=== PATIENT | male | born 1965 | race Caucasian/White ===

== ENCOUNTER 2016-05-31 15:55 | Inpatient (IN) | payer MEDICAID ==
--- NOTE | 2016-05-31 17:24 | ED PDOC ---
Arrival/HPI - General Time Seen by Provider: 05/31/16 16:50 Historian: Spouse, Other (Friend) - History of Present Illness Narrative History of Present Illness (Text): 05/31/16 17:08 A 51 year old male, whose past medical history includes diabetes, liver cancer currently getting chemo at [facility], hepatitis c, port-a-cath, portal vein thrombosis, and esophageal varices, is brought into the emergency department by and friend complaining of altered mental status. Friend reports patient has become more confused over the past few days. Patient was seen yesterday at [facility] for same complaint. He had a brain MRI which showed no abnormal findings, labs revealed a high level of ammonia. Patient was discharged home with lactulose. Friend reports medication did not help and patient became more confused today. denies any fever, vomiting, diarrhea, abdominal pain, chest pain, shortness of breath or any other complaints. ROS limited due to patients state. 06/01/16 10:29 Time/Duration: Other (few days) Symptom Course: Worsening Quality: Other Context: Other Past Medical History - Provider Review Nursing Documentation Reviewed: Yes - Infectious Disease Hx of Infectious Diseases: None - Cardiac Hx Cardiac Disorders: Yes Hx Hypertension: Yes - Pulmonary Other/Comment: portal vein thrombosis - Endocrine/Metabolic Hx Diabetes Mellitus Type 2: Yes - Hematological/Oncological Hx Hepatitis C: Yes Other/Comment: portal vein thrombosis - Musculoskeletal/Rheumatological Hx Falls: No - Gastrointestinal Other/Comment: Esophageal varices - Psychiatric Hx Substance Use: No - Surgical History Other/Comment: Banding due to esophageal varices - Anesthesia Hx Anesthesia: Yes Hx Anesthesia Reactions: No Family/Social History - Physician Review Nursing Documentation Reviewed: Yes Family/Social History: No Known Family HX Smoking Status: Smoker Currrent Status Unknown Hx Alcohol Use: No Hx Substance Use: No Allergies/Home Meds Allergies/Adverse Reactions: Allergies aspirin Allergy (Mild, Verified 05/31/16 17:39) VOMITING Home Medications: Home Meds Medication Instructions Recorded Confirmed Furosemide [Lasix] 20 mg PO DAILY 05/31/16 05/31/16 Lisinopril [Zestril] 2.5 mg PO DAILY 05/31/16 05/31/16 Omeprazole [Omeprazole] 40 mg DAILY 05/31/16 05/31/16 Ondansetron [Zofran] 8 mg PO DAILY 05/31/16 05/31/16 SITagliptin [Januvia] 100 mg PO DAILY 05/31/16 05/31/16 rifAXIMin [Xifaxan] 550 mg PO DAILY 05/31/16 05/31/16 Motilium 10 mg PO DAILY 06/01/16 Mv-Mn/FA/Vit K/Lycop/Lut/Coq10 06/01/16 [Daily Multivitamin Capsule] Propranolol [Inderal] 10 mg PO HS 06/01/16 06/01/16 Propranolol [Inderal] 20 mg PO DAILY 06/01/16 06/01/16 Vit B1 Mn/B2/B3/B5/B6/B12/C/FA [B 06/01/16 Complex with Vitamin C Tab] oxyCODONE [oxyCODONE Immediate 10 mg PO TID PRN 06/01/16 06/01/16 Release Tab] Review of Systems - Review of Systems Systems not reviewed;Unavailable: Altered Mental Status Physical Exam Vital Signs Reviewed: Yes Vital Signs Temp Pulse Resp BP Pulse Ox 06/01/16 09:05 72 18 117/83 100 06/01/16 08:53 74 18 124/78 100 06/01/16 07:38 97.8 F 83 15 106/70 96 06/01/16 06:00 98.9 F 76 16 146/72 96 06/01/16 01:52 87 18 112/75 100 05/31/16 18:55 84 19 123/79 99 05/31/16 17:21 98.5 F 83 17 123/81 100 Temperature: Afebrile Blood Pressure: Normal Pulse: Regular Respiratory Rate: Normal Appearance: Positive for: Well-Appearing, Non-Toxic, Comfortable Mental Status: Positive for: Confused. No: Alert and Oriented X 3 (Alert and oriented times 1), Agitated, Lethargic - Systems Exam Head: Present: Atraumatic, Normocephalic Pupils: Present: PERRL Extroacular Muscles: Present: EOMI Conjunctiva: Present: Normal Mouth: Present: Moist Mucous Membranes Neck: Present: Normal Range of Motion Respiratory/Chest: Present: Clear to Auscultation, Good Air Exchange. No: Respiratory Distress, Accessory Muscle Use Cardiovascular: Present: Regular Rate and Rhythm, Normal S1, S2. No: Murmurs Abdomen: Present: Normal Bowel Sounds. No: Tenderness, Distention, Peritoneal Signs Back: Present: Normal Inspection Upper Extremity: Present: Normal Inspection. No: Cyanosis, Edema Lower Extremity: Present: Normal Inspection. No: Edema Neurological: Present: GCS=15, CN II-XII Intact, Speech Normal Skin: Present: Warm, Dry, Normal Color. No: Rashes Psychiatric: Present: Alert. No: Oriented x 3 (Oriented x 1), Agitated, Lethargic Medical Decision Making ED Course and Treatment: 05/31/16 17:08 Impression: A 51 year old male brought in for altered mental status Differential Diagnosis included but are not limited to: AMS rule out infection Plan: -- Chest xray -- EKG -- Labs -- Blood and Urine culture -- Urinalysis -- Reassess and disposition Progress Notes: Blood work from [facility] reviewed, showed fairly normal results. If lab results are abnormal today patient will be admitted. Plan discussed extensively with both and friend of patient, who express understanding. 05/31/16 17:43 Case discussed with nurse from [facility], who reports patients last treatment was on 05/17/16. She states patient was seen on 05/29/16 and his ammonia level was 178. Patient was given lactulose and had 4 bowel movements yesterday. She states patients glucose level was running high, he had a finger stick level of 298. Brain MRI was negative. 05/31/16 20:08 ammonia 219-lactulose ordered. pt to be admitted under medical service. dr hanson paged. 05/31/16 21:43 Dr. Hanson not taking admissions. Case discussed with Dr. Cates, who accepts patient under his service. 06/01/16 10:29 06/01/16 10:30 - Lab Interpretations Lab Results: 05/31/16 17:50 05/31/16 17:50 Lab Results 05/31/16 18:47: Ammonia 219 H* 05/31/16 17:50: WBC 3.4 L D, RBC 4.36, Hgb 13.7 L, Hct 38.9 L, MCV 89.2, MCH 31.4, MCHC 35.2, RDW 15.1 H, Plt Count 125, MPV 11.1 H, Gran % 55.5, Lymph % ( Auto) 22.8, [place] % (Auto) 19.3 H, Eos % (Auto) 1.8, Baso % (Auto) 0.6, Gran # 1.87, Lymph # 0.8 L, Piute # 0.7 H, Eos # 0.1, Baso # 0.02, Sodium 135, Potassium 4.8, Chloride 104, Carbon Dioxide 22, Anion Gap 14, BUN 8, Creatinine 0.7, Est GFR ( Amer) > 60, Est GFR (Non-Af Amer) > 60, Random Glucose 232 H, Calcium 9.3, Total Bilirubin 2.2 H, AST 64 H, ALT 27, Alkaline Phosphatase 139 H, Total Protein 8.5 H, Albumin 3.7, Globulin 4.7, Albumin/ Globulin Ratio 0.8 L I have reviewed the lab results: Yes - RAD Interpretation Radiology Orders: 05/31/16 17:45 CHEST PORTABLE [RAD] Stat - Medication Orders Current Medication Orders: Furosemide (Lasix) 20 mg PO DAILY [facility] Insulin Human Lispro (Humalog Low) 0 units SC ACHS MELY PRN Reason: Protocol Last Admin: 06/01/16 08:31 Dose: 1 UNITS MAR Blood Glucose Document 06/01/16 08:31 MAIA (Rec: 06/01/16 08:32 MAIA [facility] [id number]) Blood Glucose Finger Stick Blood Glucose (70-120) 173 Subcutaneous Administrations Document 06/01/16 08:31 MAIA (Rec: 06/01/16 08:32 MAIA [facility] [id number]) Injection Site MAR Injection Site Left Arm Charges for Administration # of Subcutaneous Administrations 1 Lactulose (Enulose) 30 gm PO QID [facility] Lisinopril (Zestril) 2.5 mg PO DAILY [facility] Multivitamins/Minerals (Therapeutic-M Tab) 1 tab PO DAILY [facility] Non-Formulary Medication (Motilium) 10 mg PO DAILY [facility] Non-Formulary Medication (Vit B1 Mn/B2/B3/B5/B6/B12/C/Fa [B Complex With Vitamin C Tab]) 1 tab PO DAILY [facility] Ondansetron HCl (Zofran Tab) 8 mg PO DAILY [facility] Oxycodone HCl (Oxycodone Immediate Release Tab) 10 mg PO TID PRN PRN Reason: Pain, moderate (4-7) Pantoprazole Sodium (Protonix Inj) 40 mg IVP DAILY [facility] Propranolol HCl (Inderal) 20 mg PO DAILY MELY Propranolol HCl (Inderal) 10 mg PO HS MELY Rifaximin (Xifaxan) 550 mg PO BID MELY PRN Reason: Protocol Discontinued Medications Home Med (*Refrigerator Open) Confirm Administered Dose 1 unit XX .STK-MED ONE Stop: 06/01/16 06:01 Lactulose (Enulose) 20 gm PO ONCE STA Stop: 05/31/16 20:16 Last Admin: 05/31/16 20:33 Dose: 20 GM Lactulose (Generlac) 200 gm TN ONCE ONE Stop: 06/01/16 00:01 Last Admin: 06/01/16 02:42 Dose: 200 GM Lactulose (Enulose) 20 gm PO Q6 MELY Last Admin: 06/01/16 07:31 Dose: Lorazepam (Ativan) 1 mg IVP ONCE ONE PRN Reason: Protocol Stop: 05/31/16 18:56 Last Admin: 05/31/16 18:59 Dose: 1 MG Behavioural Document 05/31/16 18:59 SE (Rec: 05/31/16 18:59 SE [id number]) Maintenance Maintenance Dose No Nonmedicinal Nonmedicinal Interventions Activity Behavior Behavior for Medication: Anxiety Pulling IV lines/tubes/ catheter IVP Administration Document 05/31/16 18:59 SE (Rec: 05/31/16 18:59 SE [id number]) Charges for Administration # of IVP Administrations 1 Rifaximin (Xifaxan) 550 mg PO DAILY MELY PRN Reason: Protocol - Scribe Statement The provider has reviewed the documentation as recorded by the Theoibrickey Mcbride Provider Scribe Attestation: All medical record entries made by the Scribe were at my direction and personally dictated by me. I have reviewed the chart and agree that the record accurately reflects my personal performance of the history, physical exam, medical decision making, and the department course for this patient. I have also personally directed, reviewed, and agree with the discharge instructions and disposition. Disposition/Present on Arrival - Present on Arrival Any Indicators Present on Arrival: No History of DVT/PE: No History of Uncontrolled Diabetes: No Urinary Catheter: No History Surgical Site Infection Following: None - Disposition Have Diagnosis and Disposition been Completed?: Yes Diagnosis: Hepatic encephalopathy Disposition Time: 20:43 Patient Plan: Admission Condition: STABLE
[2016-05-31 17:38] VITALS: BMI 29.9
[2016-05-31 17:57] LABS: ADD MANUAL DIFF? NO
[2016-05-31 18:04] LABS: BASO # 0.02 [, K/mm3] (0.0-2.0); BASO % 0.6 % (0.0-3.0); EOS # 0.1 (0.0-0.7); EOS % 1.8 % (1.5-5.0); GRAN # 1.87 (1.4-6.5); GRAN % 55.5 % (50.0-68.0); HEMATOCRIT 38.9 % (42.0-52.0); LYMPH # 0.8 (1.2-3.4); LYMPH % 22.8 % (22.0-35.0); MEAN CELL VOLUME 89.2 fL (80.0-105.0); MEAN CORPUSCULAR HEMOGLOBIN 31.4 pg (25.0-35.0); MEAN CORPUSCULAR HGB CONC 35.2 g/dl (31.0-37.0); MEAN PLATELET VOLUME 11.1 fl (7.0-11.0); MONO # 0.7 (0.1-0.6); MONO % 19.3 % (1.0-6.0); PLATELET COUNT 125 [, 10^3/uL] (120.0-450.0); RED CELL DISTRIBUTION WIDTH 15.1 % (11.5-14.5); WHITE BLOOD COUNT 3.4 [, 10^3/ul] (4.5-11.0)
[2016-05-31 18:09] LABS: ALB/GLOB RATIO 0.8 (1.1-1.8); ALKALINE PHOSPHATASE 139 U/L (38-133); ALT/SGPT 27 U/L (7-56); AST/SGOT 64 U/L (15-59); BILIRUBIN,TOTAL 2.2 mg/dL (0.2-1.3); BLOOD UREA NITROGEN 8 mg/dL (7-21); CALCIUM 9.3 mg/dL (8.4-10.5); CARBON DIOXIDE 22 mmol/L (21-33); CHLORIDE 104 mmol/L (98-107); GFR AFRICAN-AMERICAN > 60; GLUCOSE,RANDOM 232 mg/dL (70-110); SODIUM 135 mmol/L (132-148); TOTAL PROTEIN 8.5 g/dL (5.8-8.3)
[2016-05-31 18:30] LABS: POTASSIUM 4.8 mmol/L (3.6-5.0)
--- NOTE | 2016-05-31 19:28 | CARD ---
APPROVED REPORT EKG Measurement Heart [id number] DC [id number] <Conclusion> Normal sinus rhythm Prolonged QT Abnormal ECG
--- NOTE | 2016-05-31 22:19 | CP.PCM.HP ---
<RoyaNiki - Last Filed: 06/01/16 00:33> History of Present Illness - History of Present Illness History of Present Illness: PGY-[address] Cates A 51 year old male, whose past medical history includes diabetes, liver cancer, hepatitis c, port-a-cath, portal vein thrombosis, and esophageal varices, is brought into the emergency department by and friend complaining of altered mental status. Friend reports patient has become more confused over the past few days. Patient was seen yesterday at [facility] for same complaint. He had a brain MRI which showed no abnormal findings, labs revealed a high level of ammonia. He was prescribed both xifaxin and lactulose but insurance only approved lactulose. Pt only took lactulose once. Today, he has drastic decline in mental status, more confused, cannot recognize people/ place/time, decrease PO intake. In the ED, VSS. Pt is leukopenic at 3.4. Hb low at 13.7. RDW is high at 15. Ammonia at 219. Glucose is high at 232. total bili is 2.2. AST high at 6. Alk phos 139. A:G is low at 0.8 EKG showed NSR @ 83. prolong QT at 481 Pt has given pt lactulose 20 x 1. and ativan 1 x 1. ROS - denies any fever, vomiting, diarrhea, abdominal pain, chest pain, shortness of breath or any other complaints. ROS limited due to patients state. Denies recent sickness, trauma, travel PMH Diabetes 2 Liver cancer, diagnosed 2 years ago, s/p radiation then Nexavar. Now on chemo trial at [facility]. Got 1 dose last week so far - weekly IV for anemia and platelet hepatitis c portal vein thrombosis esophageal varices s/p banding Hx upper GI beeding and his last episode was on october 10 2014 and he was told never to take any anticoagulants and antiplatelets PSH Port-a-cath Appendectomy FH Htn in multiple family members SH Denies the use of tobacco/etoh/illicit drug substances All NKDA (ASA listed as an allergy, but patient is not allergic; he reports being told to stay away from anticoagulation due to his varices and history of bleeding in the past) Med Lisinopril 2.5; Laxis 20 xifaxan 550, januvia Propranolol 20mg po AM, 10 mg at night omeprazole 40 Motilium 10mg Vit B, multivit Oxycodone for pain at cancer site Note: This med list is updated. Pt is currently off Aldactone 50 PMD = Dr. Yana Christine Oncologist = Dr. Kwadwo MosleyMiguel Angel, ([phone]) Present on Admission - Present on Admission Any Indicators Present on Admission: No Past Patient History - Infectious Disease Hx of Infectious Diseases: None - Past Social History Smoking Status: Smoker Currrent Status Unknown - CARDIAC Hx Cardiac Disorders: Yes Hx Hypertension: Yes - PULMONARY Other/Comment: portal vein thrombosis - ENDOCRINE/METABOLIC Hx Diabetes Mellitus Type 2: Yes - HEMATOLOGICAL/ONCOLOGICAL Hx Hepatitis C: Yes Other/Comment: portal vein thrombosis - MUSCULOSKELETAL/RHEUMATOLOGICAL Hx Falls: No - GASTROINTESTINAL Other/Comment: Esophageal varices - PSYCHIATRIC Hx Substance Use: No - SURGICAL HISTORY Other/Comment: Banding due to esophageal varices - ANESTHESIA Hx Anesthesia: Yes Hx Anesthesia Reactions: No Meds Allergies/Adverse Reactions: Allergies Allergy/AdvReac Type Severity Reaction Status Date / Time aspirin Allergy Mild VOMITING Verified 05/31/16 17:39 Physical Exam - Constitutional Appears: No Acute Distress Additional comments: lethargic, easily awaken, AAOx1 - Head Exam Head Exam: ATRAUMATIC, NORMOCEPHALIC - Eye Exam Eye Exam: Normal appearance, PERRL. absent: Scleral icterus - ENT Exam ENT Exam: Mucous Membranes Moist - Neck Exam Neck exam: Positive for: Normal Inspection. Negative for: Lymphadenopathy, Meningismus - Respiratory Exam Respiratory Exam: Clear to Auscultation Bilateral, NORMAL BREATHING PATTERN. absent: Rales, Rhonchi, Wheezes - Cardiovascular Exam Cardiovascular Exam: REGULAR RHYTHM, +S1, +S2. absent: Systolic Murmur - GI/Abdominal Exam GI & Abdominal Exam: Normal Bowel Sounds, Organomegaly, Soft. absent: Distended , Firm, Guarding, Rigid Additional comments: no fluid wave - Extremities Exam Extremities exam: Positive for: normal capillary refill, pedal pulses present. Negative for: pedal edema - Neurological Exam Additional comments: lethargic - Skin Skin Exam: Dry, Warm Results - Vital Signs Recent Vital Signs: Last Vital Signs Temp 98.5 F 05/31/16 17:21 Pulse 84 05/31/16 18:55 Resp 19 05/31/16 18:55 BP 123/79 05/31/16 18:55 Pulse Ox 99 05/31/16 18:55 - Labs Result Diagrams: 05/31/16 17:50 05/31/16 17:50 Labs: Laboratory Results - last 24 hr 05/31/16 05/31/16 17:50 18:47 WBC 3.4 L D RBC 4.36 Hgb 13.7 L Hct 38.9 L MCV 89.2 MCH 31.4 MCHC 35.2 RDW 15.1 H Plt Count 125 MPV 11.1 H Gran % 55.5 Lymph % (Auto) 22.8 Mclean % (Auto) 19.3 H Eos % (Auto) 1.8 Baso % (Auto) 0.6 Gran # 1.87 Lymph # 0.8 L Mclean # 0.7 H Eos # 0.1 Baso # 0.02 Sodium 135 Potassium 4.8 Chloride 104 Carbon Dioxide 22 Anion Gap 14 BUN 8 Creatinine 0.7 Est GFR ( Amer) > 60 Est GFR (Non-Af Amer) > 60 Random Glucose 232 H Calcium 9.3 Total Bilirubin 2.2 H AST 64 H ALT 27 Alkaline Phosphatase 139 H Ammonia 219 H* Total Protein 8.5 H Albumin 3.7 Globulin 4.7 Albumin/Globulin Ratio 0.8 L Assessment & Plan - Assessment and Plan (Free Text) Plan: A 51 year old male, whose past medical history includes diabetes, liver cancer, hepatitis c, port-a-cath, portal vein thrombosis, and esophageal varices, is brought into the emergency department by and friend complaining of altered mental status likely from hepatic encephalopathy due to chronic liver cancer, hep c, portal hypotension, portal vein thrombosis AMS likely from hepatic encephalopathy - ischemic unlikely Consider CT head in AM. No CP. EKG no ST changes or TWI - infection Leukocytosis 3.4. Septic work up. Observe off broad spectrum antibiotics - iatrogenic/Electrolyes Sugar normal. other electrolytes wnl - Ammounia high s/p lacutose x 2; - liquid diet for now pending mentation improves Hepatic encephalopathy - consider CT Abdomen and pelvis when pt mentation improves - Xifaxin, lactulose q6 - pending GI rec - aspiration precaution Liver cancer hepatitis c Portal hypotension portal vein thrombosis due to cancer esophageal varices s/p banding - pending INR, coags - total bili is 2.2. AST high at 6. Alk phos 139. A:G is low at 0.8 - continue home motilium for GI motility Hb low at 13.7. RDW is high at 15. - hemodynamically stable DM - stable; will place on accuchecks and ISS Esophageal varices - c/w propranolol; no acute issues at this time prolong QT at 481 GI/DVT ppx - will place on protonix 40mg po daily; pending coags, scd for now - Date & Time Date: 05/31/16 Time: 22:16 <Hiwot Cates - Last Filed: 06/01/16 06:25> Results - Vital Signs Recent Vital Signs: Last Vital Signs Temp 98.5 F 05/31/16 17:21 Pulse 87 06/01/16 01:52 Resp 18 06/01/16 01:52 BP 112/75 06/01/16 01:52 Pulse Ox 100 06/01/16 01:52 - Labs Result Diagrams: 05/31/16 17:50 05/31/16 17:50 Labs: Laboratory Results - last 24 hr 06/01/16 02:50 PT 18.0 H INR 1.67 H APTT 29.2 Attending/Attestation - Attestation I have personally seen and examined this patient.: Yes I have fully participated in the care of the patient.: Yes I have reviewed all pertinent clinical information: Yes Notes (Text): 06/01/16 06:23 Patient was seen when he was in room # [address] in the ER with Dr.Katherine Pryor. Agree with history , physical examination , assessment and plan.
--- NOTE | 2016-05-31 22:49 | RAD ---
EXAM: XR Chest, 1 View. CLINICAL HISTORY: 51 years old, male; Signs and symptoms; Other: Weakness; Additional info: Confusion TECHNIQUE: Frontal view of the chest. EXAM DATE/TIME: 05/31/2016 5:45 PM COMPARISON: CR - CHEST TWO VIEWS (PA/LAT) 01/29/2015 11:18:21 AM FINDINGS: Tubes and catheters: Port-A-Cath in the right chest wall. Catheter tip is in the low superior vena cava. Heart: Heart size is normal. Mediastinum and kayli: Mediastinal and hilar contours are unremarkable. Vascularity: Pulmonary vascularity is normal. Lungs: Lung volumes are low. There are no focal consolidations. Pleural spaces: There are no effusions. Bony structures: Bony structures are unremarkable. IMPRESSION: No acute disease in the chest
[2016-06-01] MEDS ORDERED: Lactulose 10 gm/15 ml (Rectal Use) PR ONE
[2016-06-01] MEDS ORDERED: oxyCODONE 10 mg Immediate Release Tab PO PRN (00:17)
[2016-06-01 03:15] LABS: INR 1.67 (0.93-1.08); PARTIAL THROMBOPLASTIN TIME 29.2 Seconds (23.7-30.8)
[2016-06-01 06:27] LABS: HEMATOCRIT 37.1 % (42.0-52.0); MEAN CELL VOLUME 88.8 fL (80.0-105.0); MEAN CORPUSCULAR HEMOGLOBIN 31.8 pg (25.0-35.0); MEAN CORPUSCULAR HGB CONC 35.8 g/dl (31.0-37.0); PLATELET COUNT 112 [, 10^3/uL] (120.0-450.0); RED CELL DISTRIBUTION WIDTH 15.1 % (11.5-14.5)
[2016-06-01 06:39] LABS: ADD MANUAL DIFF? YES; WHITE BLOOD COUNT 2.8 [, 10^3/ul] (4.5-11.0)
[2016-06-01 06:40] LABS: ALB/GLOB RATIO 0.7 (1.1-1.8); ALKALINE PHOSPHATASE 139 U/L (38-133); ALT/SGPT 35 U/L (7-56); AST/SGOT 51 U/L (15-59); BILIRUBIN,TOTAL 2.3 mg/dL (0.2-1.3); BLOOD UREA NITROGEN 10 mg/dL (7-21); CALCIUM 9.3 mg/dL (8.4-10.5); CARBON DIOXIDE 22 mmol/L (21-33); CHLORIDE 105 mmol/L (98-107); GFR AFRICAN-AMERICAN > 60; GLUCOSE,RANDOM 193 mg/dL (70-110); POTASSIUM 4.1 mmol/L (3.6-5.0); SODIUM 137 mmol/L (132-148); TOTAL PROTEIN 8.2 g/dL (5.8-8.3)
[2016-06-01] MEDS: Insulin Lispro (humaLOG) LOW Coverage SC SCH ×4 (08:31→22:21)
[2016-06-01 10:52] LABS: ANISOCYTOSIS SLIGHT; BAND 3 % (0-2); EOSINOPHIL 1 % (0.0-3.0); NEUTROPHIL 62 % (50.0-70.0); OVALOCYTES SLIGHT; PLATELET ESTIMATE SL. DEC (NORMAL); TOXIC GRANULATION SLIGHT
--- NOTE | 2016-06-01 13:10 | CP.PCM.CON ---
<Olivier Lugo - Last Filed: 06/01/16 13:13> History of Present Illness - History of Present Illness History of Present Illness: PGY4 GI Fellow Consult Note Patient is a 51yo male with PMHx significant for HCC with initial treatment of Nexavar/XRT and subsequent recurrence currently on [place] [facility] s/p treatment and subsequent SVR, PV thrombosis, esophageal varices. The patient was brought in to the ED by family for progressively worsening mental status. The patient began a new chemotherapy regimen two weeks prior to admission at [facility]. In the last week he has become more weak and confused at home. He was seen in the outpatient setting at [facility] recently and had lab work and was given prescription for lactulose and rifaximin when his ammonia levels were noted to be elevated. He was unable to obtain rifaximin and his status worsened prompting family to bring him to the ED for further evaluation. Presently, the patient is stuporous and unable to provide significant history but is able to answer simple questions. Since arrival he has been given Lactulose NC and per family, mentation is already improved. Currently, patient denies any abdominal distention, pain, nausea, vomiting, melena, hematochezia, weight loss. PMHx: See HPI PSHx: Right chest port-a-cath placement, appendectomy FHx: Multiple members with HTN Social: Denies tobacco, EtOH or illicit drug use Review of Systems - Constitutional Constitutional: Fatigue. absent: Anorexia, Chills, Fever - EENT Eyes: absent: Change in Vision Nose/Mouth/Throat: absent: Sore Throat - Cardiovascular Cardiovascular: absent: Chest Pain, Diaphoresis, Dyspnea - Respiratory Respiratory: absent: Cough, Dyspnea, Excessive Mucous Production - Gastrointestinal Gastrointestinal: absent: Abdominal Pain, Bloating, Constipation, Cramping, Diarrhea, Dyspepsia, Dysphagia, Hematemesis, Hematochezia, Melena, Nausea, Vomiting - Genitourinary Genitourinary: absent: Dysuria, Urinary Frequency, Urinary Urgency - Musculoskeletal Musculoskeletal: absent: Back Pain, Neck Pain - Integumentary Integumentary: absent: New Lesions, Rash - Neurological Neurological: Confusion, Weakness. absent: Dizziness, Numbness - Psychiatric Psychiatric: absent: Anxiety, Depression - Endocrine Endocrine: absent: Polydipsia, Polyphagia, Polyuria - Hematologic/Lymphatic Hematologic: absent: Easy Bleeding, Easy Bruising, Lymphadenopathy Past Patient History - Infectious Disease Hx of Infectious Diseases: None - Past Social History Smoking Status: Smoker Currrent Status Unknown - CARDIAC Hx Cardiac Disorders: Yes Hx Hypertension: Yes - PULMONARY Other/Comment: portal vein thrombosis - ENDOCRINE/METABOLIC Hx Diabetes Mellitus Type 2: Yes - HEMATOLOGICAL/ONCOLOGICAL Hx Hepatitis C: Yes Other/Comment: portal vein thrombosis - MUSCULOSKELETAL/RHEUMATOLOGICAL Hx Falls: No - GASTROINTESTINAL Other/Comment: Esophageal varices - PSYCHIATRIC Hx Substance Use: No - SURGICAL HISTORY Other/Comment: Banding due to esophageal varices - ANESTHESIA Hx Anesthesia: Yes Hx Anesthesia Reactions: No Meds Allergies/Adverse Reactions: Allergies Allergy/AdvReac Type Severity Reaction Status Date / Time aspirin Allergy Mild VOMITING Verified 06/01/16 12:55 - Medications Medications: Current Medications Furosemide (Lasix) 20 mg PO DAILY [facility] Last Admin: 06/01/16 10:55 Dose: 20 mg Insulin Human Lispro (Humalog Low) 0 units SC ACHS [facility] PRN Reason: Protocol Last Admin: 06/01/16 08:31 Dose: 1 units Lactulose (Enulose) 30 gm PO QID [facility] Last Admin: 06/01/16 10:55 Dose: 30 gm Lisinopril (Zestril) 2.5 mg PO DAILY [facility] Last Admin: 06/01/16 11:04 Dose: 2.5 mg Multivitamins/Minerals (Therapeutic-M Tab) 1 tab PO DAILY [facility] Motilium 10 Mg 10 mg PO DAILY [facility] Vit B1 Mn/B2/B3/B5/B6/B12/C/Fa [B Complex With Vitamin C Tab] 1 1 tab PO DAILY [facility] Ondansetron HCl (Zofran Tab) 8 mg PO DAILY [facility] Last Admin: 06/01/16 11:05 Dose: 8 mg Oxycodone HCl (Oxycodone Immediate Release Tab) 10 mg PO TID PRN PRN Reason: Pain, moderate (4-7) Pantoprazole Sodium (Protonix Inj) 40 mg IVP DAILY [facility] Last Admin: 06/01/16 10:55 Dose: 40 mg Propranolol HCl (Inderal) 20 mg PO DAILY [facility] Last Admin: 06/01/16 11:04 Dose: 20 mg Propranolol HCl (Inderal) 10 mg PO HS [facility] Rifaximin (Xifaxan) 550 mg PO BID [facility] PRN Reason: Protocol Last Admin: 06/01/16 11:04 Dose: 550 mg Physical Exam - Constitutional Appears: Non-toxic, No Acute Distress - Eye Exam Eye Exam: EOMI, PERRL - ENT Exam ENT Exam: Mucous Membranes Moist - Respiratory Exam Respiratory Exam: Clear to Auscultation Bilateral. absent: Rales, Rhonchi, Wheezes - Cardiovascular Exam Cardiovascular Exam: RRR, +S1, +S2 - GI/Abdominal Exam GI & Abdominal Exam: Normal Bowel Sounds, Soft. absent: Distended, Firm, Guarding, Organomegaly, Rigid, Tenderness - Extremities Exam Extremities exam: Positive for: pedal edema Additional comments: 1+ LE edema - Neurological Exam Neurological exam: Altered - Psychiatric Exam Psychiatric exam: Normal Affect, Normal Mood - Skin Skin Exam: Dry, Warm Results - Vital Signs Recent Vital Signs: Last Vital Signs Temp 97.8 F 06/01/16 07:38 Pulse 90 06/01/16 11:04 Resp 18 06/01/16 09:05 BP 132/76 06/01/16 11:04 Pulse Ox 100 06/01/16 09:05 - Labs Result Diagrams: 06/01/16 05:00 06/01/16 05:00 Labs: Laboratory Results - last 24 hr 06/01/16 06/01/16 06/01/16 02:50 05:00 08:17 WBC 2.8 L* RBC 4.18 Hgb 13.3 L Hct 37.1 L MCV 88.8 MCH 31.8 MCHC 35.8 RDW 15.1 H Plt Count 112 L MPV 11.0 Neutrophils % (Manual) 62 Band Neutrophils % 3 H Lymphocytes % (Manual) 23 Monocytes % (Manual) 9 H Eosinophils % (Manual) 1 Toxic Granulation Slight Platelet Evaluation Sl. dec Anisocytosis (manual) Slight Ovalocytes Slight PT 18.0 H INR 1.67 H APTT 29.2 Sodium 137 Potassium 4.1 Chloride 105 Carbon Dioxide 22 Anion Gap 14 BUN 10 Creatinine 0.6 Est GFR ( Amer) > 60 Est GFR (Non-Af Amer) > 60 POC Glucose (mg/dL) 173 H Random Glucose 193 H Calcium 9.3 Total Bilirubin 2.3 H AST 51 ALT 35 Alkaline Phosphatase 139 H Total Protein 8.2 Albumin 3.4 Globulin 4.7 Albumin/Globulin Ratio 0.7 L Assessment & Plan - Assessment and Plan (Free Text) Assessment: Patient is a 51yo male with PMHx significant for HCC with initial treatment of Nexavar/XRT and subsequent recurrence currently on chemotherapy [place] [facility], HCV s/p treatment and subsequent SVR, PV thrombosis, esophageal varices. The patient was brought in to the ED by family for progressively worsening mental status. -Decompensated cirrhosis with h/o HCV and HCC -HCC s/p Nexavar/XRT and now on chemotherapy -Hepatic encephalopathy 2/2 above -H/O esophageal varices Plan: -Lactulose 30gm PO QID -Rifaximin 550mg PO BID -Suspect current episode of HE may have been precipitated by recent chemotherapy -Check ultrasound abdomen, evaluate HCC lesions and parenchyma; R/O ascites -R/O infectious etiology, no evidence of acute hemorrhage -Once stabilized; patient to follow up outpatient with his primary crime laboratory analyst *MELD-Na: 17 - Date & Time Date: 06/01/16 Time: 11:10 <Edin Bowser - Last Filed: 06/01/16 16:30> Meds - Medications Medications: Current Medications Furosemide (Lasix) 20 mg PO DAILY [facility] Last Admin: 06/01/16 10:55 Dose: 20 mg Insulin Human Lispro (Humalog Low) 0 units SC ACHS [facility] PRN Reason: Protocol Last Admin: 06/01/16 13:24 Dose: 2 units Lactulose (Enulose) 30 gm PO QID [facility] Last Admin: 06/01/16 14:48 Dose: 30 gm Lisinopril (Zestril) 2.5 mg PO DAILY [facility] Last Admin: 06/01/16 11:04 Dose: 2.5 mg Multivitamins/Minerals (Therapeutic-M Tab) 1 tab PO DAILY [facility] Motilium 10 Mg 10 mg PO DAILY [facility] Vit B1 Mn/B2/B3/B5/B6/B12/C/Fa [B Complex With Vitamin C Tab] 1 1 tab PO DAILY [facility] Ondansetron HCl (Zofran Tab) 8 mg PO DAILY [facility] Last Admin: 06/01/16 11:05 Dose: 8 mg Oxycodone HCl (Oxycodone Immediate Release Tab) 10 mg PO TID PRN PRN Reason: Pain, moderate (4-7) Pantoprazole Sodium (Protonix Inj) 40 mg IVP DAILY [facility] Last Admin: 06/01/16 10:55 Dose: 40 mg Propranolol HCl (Inderal) 20 mg PO DAILY [facility] Last Admin: 06/01/16 11:04 Dose: 20 mg Propranolol HCl (Inderal) 10 mg PO HS [facility] Rifaximin (Xifaxan) 550 mg PO BID [facility] PRN Reason: Protocol Last Admin: 06/01/16 11:04 Dose: 550 mg Results - Vital Signs Recent Vital Signs: Last Vital Signs Temp 97.8 F 06/01/16 07:38 Pulse 78 06/01/16 12:00 Resp 18 06/01/16 12:00 BP 99/81 L 06/01/16 12:00 Pulse Ox 100 06/01/16 12:00 - Labs Result Diagrams: 06/01/16 05:00 06/01/16 05:00 Labs: Laboratory Results - last 24 hr 06/01/16 06/01/16 06/01/16 02:50 05:00 08:17 WBC 2.8 L* RBC 4.18 Hgb 13.3 L Hct 37.1 L MCV 88.8 MCH 31.8 MCHC 35.8 RDW 15.1 H Plt Count 112 L MPV 11.0 Neutrophils % (Manual) 62 Band Neutrophils % 3 H Lymphocytes % (Manual) 23 Monocytes % (Manual) 9 H Eosinophils % (Manual) 1 Toxic Granulation Slight Platelet Evaluation Sl. dec Anisocytosis (manual) Slight Ovalocytes Slight PT 18.0 H INR 1.67 H APTT 29.2 Sodium 137 Potassium 4.1 Chloride 105 Carbon Dioxide 22 Anion Gap 14 BUN 10 Creatinine 0.6 Est GFR ( Amer) > 60 Est GFR (Non-Af Amer) > 60 POC Glucose (mg/dL) 173 H Random Glucose 193 H Calcium 9.3 Total Bilirubin 2.3 H AST 51 ALT 35 Alkaline Phosphatase 139 H Total Protein 8.2 Albumin 3.4 Globulin 4.7 Albumin/Globulin Ratio 0.7 L 06/01/16 13:21 WBC RBC Hgb Hct MCV MCH MCHC RDW Plt Count MPV Neutrophils % (Manual) Band Neutrophils % Lymphocytes % (Manual) Monocytes % (Manual) Eosinophils % (Manual) Toxic Granulation Platelet Evaluation Anisocytosis (manual) Ovalocytes PT INR APTT Sodium Potassium Chloride Carbon Dioxide Anion Gap BUN Creatinine Est GFR ( Amer) Est GFR (Non-Af Amer) POC Glucose (mg/dL) 238 H Random Glucose Calcium Total Bilirubin AST ALT Alkaline Phosphatase Total Protein Albumin Globulin Albumin/Globulin Ratio Attending/Attestation - Attestation I have personally seen and examined this patient.: Yes I have fully participated in the care of the patient.: Yes I have reviewed all pertinent clinical information: Yes Notes (Text): Patient seen and examined with GI fellow. Agree with his note as documented above with the following additions/exceptions. This is a 51yo male with PMHx significant for HCV s/p treatment (2014) complicated by cirrhosis with HCC currently followed [place] [facility] [place] (last dose reportedly 1 week ago, sees Dr. Vale), PV thrombosis, esophageal varices who is admitted with hepatic encephalopathy, possibly precipitated by chemo regimen. Will obtain records from [facility]. He slightly improved this morning per the patient's but still somewhat lethargic, with +asterixis on examination. Continue lactulose/ rifaximin. Obtain abdominal sonogram. Monitor LFTs, current MELD=17. Will continue to follow and make recommendations depending on patient's clinical course. D/w primary medical service. 06/01/16 16:25
--- NOTE | 2016-06-01 15:00 | US ---
HISTORY: h/o HCC, eval liver parenchyma, r/o ascites COMPARISON: 06/25/2015. TECHNIQUE: Sonographic evaluation of the abdomen. FINDINGS: LIVER: Measures 14.8 cm. She portal vein thrombosis. Absence of flow in the main portal vein or branches visualize. Thrombus is identified in the main portal vein. . Echogenicity of the liver parenchyma. Solid mass right hepatic lobe 2.1 x 2.3 cm. Additional solid mass right hepatic lobe 4.2 cm. GALLBLADDER: Cholelithiasis, gallbladder wall thickening similar to that seen previously. No evidence of pericholecystic fluid or sonographic Nicole's sign. COMMON BILE DUCT: Measures 3.0 mm. No stones. No dilatation. PANCREAS: Unremarkable as visualized. No mass. No ductal dilatation. RIGHT KIDNEY: Measures 5 x 12cm. Normal echogenicity. No calculus, mass, or hydronephrosis. LEFT KIDNEY: Measures 11.9 x 6cm. Normal echogenicity. No calculus, mass, or hydronephrosis. SPLEEN: Splenomegaly. Orthogonal measurements 18.8 x 17 cm. Similar to that seen on the prior study. AORTA: No aneurysmal dilatation. IVC: Unremarkable. OTHER FINDINGS: Incompletely visualized intra-abdominal ascites. IMPRESSION: 1. Portal vein thrombosis. Flow was not identified in the portal veins. Thrombus was identified. 2. Stable splenomegaly. 3. Stable findings in the gallbladder including gallstones and thickened gallbladder wall.
[2016-06-01] MEDS ORDERED: Influenza Vaccine 45 MCG/0.5 ml IM ONE (17:53)
[2016-06-01] MEDS ORDERED: Pneumococcal 23-Valent Vaccine IM ONE (17:53)
[2016-06-02 01:44] LABS: URINE BILIRUBIN NEGATIVE (NEGATIVE); URINE BLOOD MODERATE (NEGATIVE); URINE GLUCOSE (UA) NEGATIVE (NEGATIVE); URINE KETONE TRACE mg/dL (NEGATIVE); URINE LEUKOCYTE ESTERASE NEGATIVE Leu/uL (NEGATIVE); URINE PROTEIN NEGATIVE mg/dL (<30 mg/dL); URINE UROBILINOGEN 0.2 E.U./dL (<1 E.U./dL)
[2016-06-02 01:49] LABS: URINE APPEARANCE SLIGHT-CLOUDY (CLEAR); URINE COLOR YELLOW (YELLOW)
[2016-06-02 02:06] LABS: URINE BACTERIA SMALL (NEG); URINE WBC 0 - 2 /hpf (0-6)
[2016-06-02 07:57] LABS: ADD MANUAL DIFF? NO
[2016-06-02 08:03] LABS: BASO # 0.02 [, K/mm3] (0.0-2.0); BASO % 0.7 % (0.0-3.0); EOS # 0.1 (0.0-0.7); GRAN # 1.35 (1.4-6.5); GRAN % 44.7 % (50.0-68.0); HEMATOCRIT 37.8 % (42.0-52.0); LYMPH % 33.4 % (22.0-35.0); MEAN CELL VOLUME 88.5 fL (80.0-105.0); MEAN CORPUSCULAR HEMOGLOBIN 31.6 pg (25.0-35.0); MEAN CORPUSCULAR HGB CONC 35.7 g/dl (31.0-37.0); MEAN PLATELET VOLUME 10.6 fl (7.0-11.0); MONO # 0.6 (0.1-0.6); MONO % 19.2 % (1.0-6.0); PLATELET COUNT 130 [, 10^3/uL] (120.0-450.0); RED CELL DISTRIBUTION WIDTH 15.2 % (11.5-14.5)
[2016-06-02] MEDS: Insulin Lispro (humaLOG) LOW Coverage SC SCH ×4 (08:30→21:37)
[2016-06-02 08:44] LABS: ALB/GLOB RATIO 0.7 (1.1-1.8); ALKALINE PHOSPHATASE 137 U/L (38-133); ALT/SGPT 28 U/L (7-56); AST/SGOT 56 U/L (15-59); BILIRUBIN,TOTAL 2.5 mg/dL (0.2-1.3); BLOOD UREA NITROGEN 14 mg/dL (7-21); CALCIUM 9.5 mg/dL (8.4-10.5); CARBON DIOXIDE 25 mmol/L (21-33); CHLORIDE 102 mmol/L (98-107); GFR AFRICAN-AMERICAN > 60; GLUCOSE,RANDOM 187 mg/dL (70-110); POTASSIUM 4.2 mmol/L (3.6-5.0); SODIUM 136 mmol/L (132-148); TOTAL PROTEIN 8.4 g/dL (5.8-8.3)
[2016-06-02 09:08] VITALS: RESP 20
[2016-06-02] MEDS: Multivitamin With Minerals Tab PO SCH (10:14)
[2016-06-02] MEDS: MOTILIUM 10 MG PO SCH (10:17)
[2016-06-02] MEDS: B5 PO SCH (10:18)
[2016-06-02] MEDS: [UNRECOGNIZED DRUG - OTHER] PO SCH (10:18)
[2016-06-02] MEDS: B3 PO SCH (10:18)
[2016-06-02] MEDS: B12 PO SCH (10:18)
[2016-06-02] MEDS: B6 PO SCH (10:18)
[2016-06-02] MEDS: B2 PO SCH (10:18)
[2016-06-02] MEDS: VITAMIN C PO SCH (10:18)
[2016-06-02] MEDS: VIT B1 MN PO SCH (10:18)
--- NOTE | 2016-06-02 13:05 | CP.PCM.PN ---
Subjective - Date & Time of Evaluation Date of Evaluation: 06/02/16 Time of Evaluation: 13:01 - Subjective Subjective: RFV: Cirrhosis S: Still feels weak/unwell. Still feels forgetful, but able to state the year and location. No bleeding, fever, nausea, vomiting, diarrhea. Denies abdominal pain. Objective - Vital Signs/Intake and Output Vital Signs (last 24 hours): Temp Pulse Resp BP Pulse Ox 98.7 F 85 20 111/74 96 06/02/16 08:46 06/02/16 10:14 06/02/16 08:46 06/02/16 10:16 06/02/16 08:46 Intake and Output: 06/02/16 06/02/16 06:59 18:59 Intake Total 900 Output Total 150 Balance 750 - Medications Medications: Current Medications Furosemide (Lasix) 20 mg PO DAILY [facility] Last Admin: 06/02/16 10:16 Dose: 20 mg Insulin Human Lispro (Humalog Low) 0 units SC ACHS [facility] PRN Reason: Protocol Last Admin: 06/02/16 12:08 Dose: 3 units Lactulose (Enulose) 30 gm PO QID [facility] Last Admin: 06/02/16 10:14 Dose: 30 gm Lisinopril (Zestril) 2.5 mg PO DAILY [facility] Last Admin: 06/02/16 10:17 Dose: 2.5 mg Multivitamins/Minerals (Therapeutic-M Tab) 1 tab PO DAILY [facility] Last Admin: 06/02/16 10:14 Dose: 1 tab Neomycin Sulfate (Neomycin Tab) 500 mg PO Q6 [facility] Last Admin: 06/02/16 12:01 Dose: 500 mg Motilium 10 Mg 10 mg PO DAILY [facility] Last Admin: 06/02/16 10:17 Dose: Not Given Vit B1 Mn/B2/B3/B5/B6/B12/C/Fa [B Complex With Vitamin C Tab] 1 1 tab PO DAILY [facility] Last Admin: 06/02/16 10:18 Dose: Not Given Ondansetron HCl (Zofran Tab) 8 mg PO DAILY [facility] Last Admin: 06/02/16 12:01 Dose: 8 mg Oxycodone HCl (Oxycodone Immediate Release Tab) 10 mg PO TID PRN PRN Reason: Pain, moderate (4-7) Pantoprazole Sodium (Protonix Inj) 40 mg IVP DAILY [facility] Last Admin: 06/02/16 10:20 Dose: 40 mg Propranolol HCl (Inderal) 20 mg PO DAILY [facility] Last Admin: 06/02/16 10:14 Dose: 20 mg Propranolol HCl (Inderal) 10 mg PO HS [facility] Last Admin: 06/01/16 22:22 Dose: 10 mg Rifaximin (Xifaxan) 550 mg PO BID [facility] PRN Reason: Protocol Last Admin: 06/02/16 10:16 Dose: 550 mg - Labs Labs: 06/02/16 07:30 06/02/16 07:30 PT 18.0 Seconds (9.9-11.8) H 06/01/16 02:50 INR 1.67 (0.93-1.08) H 06/01/16 02:50 APTT 29.2 Seconds (23.7-30.8) 06/01/16 02:50 - Constitutional Appears: No Acute Distress, Chronically Ill - Head Exam Head Exam: ATRAUMATIC, NORMOCEPHALIC - Eye Exam Eye Exam: absent: Scleral icterus - Respiratory Exam Respiratory Exam: NORMAL BREATHING PATTERN. absent: Wheezes, Respiratory Distress - Cardiovascular Exam Cardiovascular Exam: +S1, +S2 - GI/Abdominal Exam GI & Abdominal Exam: Distended, Soft. absent: Tenderness - Neurological Exam Neurological Exam: Alert, Oriented x3 - Skin Skin Exam: Dry, Warm Assessment and Plan - Assessment and Plan (Free Text) Assessment: 51 year old male with h/o HCV s/p treatment (2014), HCV Cirrhosis c/b HCC currently followed at [facility] on chemo (last dose reportedly 1 week ago, sees Dr. Vale), PV thrombosis, esophageal varices who is admitted with hepatic encephalopathy. 1. Hepatic encephalopathy 2. Hepatitis C cirrhosis 3. HCC 4. Portal vein thrombosis 5. Gallstones Plan: -recommend lactulose 30 g QID and rifaxamin 550 mg BID -diet as tolerated -supportive care -No ascites on imaging -he will resume outpatient chemo when he improves and is discharged
--- NOTE | 2016-06-02 17:02 | CP.PCM.PN ---
<Sumeet Simmsnorm - Last Filed: 06/02/16 18:30> Subjective - Date & Time of Evaluation Date of Evaluation: 06/02/16 Time of Evaluation: 07:25 - Subjective Subjective: Patient seen and examined at bedside with at bedside. No acute events overnight. Patient's mental status improved. He is awake, alert, orientated and following verbal commands. Patient complains of weakness and has not ambulated since hospital admission. Questions and concerns were addressed. Denies headache , dizziness, fever, chills, nausea, or vomiting. Objective - Vital Signs/Intake and Output Vital Signs (last 24 hours): Temp Pulse Resp BP Pulse Ox 98.7 F 85 20 111/74 96 06/02/16 08:46 06/02/16 10:14 06/02/16 08:46 06/02/16 10:16 06/02/16 08:46 Intake and Output: 06/02/16 06/02/16 06:59 18:59 Intake Total 900 300 Output Total 150 200 Balance 750 100 - Medications Medications: Current Medications Furosemide (Lasix) 20 mg PO DAILY [facility] Last Admin: 06/02/16 10:16 Dose: 20 mg Insulin Human Lispro (Humalog Low) 0 units SC ACHS [facility] PRN Reason: Protocol Last Admin: 06/02/16 12:08 Dose: 3 units Lactulose (Enulose) 30 gm PO QID [facility] Last Admin: 06/02/16 13:38 Dose: 30 gm Lisinopril (Zestril) 2.5 mg PO DAILY [facility] Last Admin: 06/02/16 10:17 Dose: 2.5 mg Multivitamins/Minerals (Therapeutic-M Tab) 1 tab PO DAILY [facility] Last Admin: 06/02/16 10:14 Dose: 1 tab Neomycin Sulfate (Neomycin Tab) 500 mg PO Q6 [facility] Last Admin: 06/02/16 12:01 Dose: 500 mg Motilium 10 Mg 10 mg PO DAILY [facility] Last Admin: 06/02/16 10:17 Dose: Not Given Vit B1 Mn/B2/B3/B5/B6/B12/C/Fa [B Complex With Vitamin C Tab] 1 1 tab PO DAILY [facility] Last Admin: 06/02/16 10:18 Dose: Not Given Ondansetron HCl (Zofran Tab) 8 mg PO DAILY [facility] Last Admin: 06/02/16 12:01 Dose: 8 mg Oxycodone HCl (Oxycodone Immediate Release Tab) 10 mg PO TID PRN PRN Reason: Pain, moderate (4-7) Pantoprazole Sodium (Protonix Inj) 40 mg IVP DAILY [facility] Last Admin: 06/02/16 10:20 Dose: 40 mg Propranolol HCl (Inderal) 20 mg PO DAILY [facility] Last Admin: 06/02/16 10:14 Dose: 20 mg Propranolol HCl (Inderal) 10 mg PO HS [facility] Last Admin: 06/01/16 22:22 Dose: 10 mg Rifaximin (Xifaxan) 550 mg PO BID [facility] PRN Reason: Protocol Last Admin: 06/02/16 10:16 Dose: 550 mg - Labs Labs: 06/02/16 07:30 06/02/16 07:30 PT 18.0 Seconds (9.9-11.8) H 06/01/16 02:50 INR 1.67 (0.93-1.08) H 06/01/16 02:50 APTT 29.2 Seconds (23.7-30.8) 06/01/16 02:50 - Constitutional Appears: Non-toxic, No Acute Distress, Chronically Ill - Head Exam Head Exam: ATRAUMATIC, NORMOCEPHALIC - Eye Exam Eye Exam: Normal appearance, PERRL - ENT Exam ENT Exam: Mucous Membranes Moist - Neck Exam Neck Exam: Normal Inspection - Respiratory Exam Respiratory Exam: Clear to Ausculation Bilateral, NORMAL BREATHING PATTERN. absent: Respiratory Distress - Cardiovascular Exam Cardiovascular Exam: REGULAR RHYTHM, +S1, +S2. absent: Murmur - GI/Abdominal Exam GI & Abdominal Exam: Soft, Normal Bowel Sounds, Organomegaly - Neurological Exam Neurological Exam: Alert, Awake, Oriented x3 Additional comments: weakness, lethargic - Psychiatric Exam Psychiatric exam: Normal Affect, Normal Mood - Skin Skin Exam: Dry, Warm Assessment and Plan - Assessment and Plan (Free Text) Assessment: 51 year old Pakistani male with medical history includes diabetes, liver cancer, hepatitis c, port-a-cath, portal vein thrombosis, and esophageal varices, came to ED with altered mental status likely from hepatic encephalopathy due to elevated ammonia level AMS likely from hepatic encephalopathy - Mental status improved, still lethargic - Elevated Ammonia at 170 on Sunday when patient visited his oncologist - Ammonia at 219 upon ED admission, today 126 - Continue lactulose 30gm po QID - Continue neomycin 500mg po Q6 - motilium 10mg po - Xifaxin, lactulose q6 - Follow GI recommendations - aspiration precaution - liquid diet Pancytopenia 2/2 to recent chemotherapy - WBC improved at 3.0 - Platelet improved at 130 - Hgb stable esophageal varices s/p banding - total bili is 2.2. AST high at 6. Alk phos 139. A:G is low at 0.8 - continue home motilium for GI motility DM -stable -accuchecks and ISS Prophylactic measures -protonix 40mg po daily -scd for now -Zofran for nausea and vomiting -Pending physical therapy evaluation <Deborah DAVIDSON,Kitty - Last Filed: 06/03/16 14:22> Objective - Vital Signs/Intake and Output Vital Signs (last 24 hours): Temp Pulse Resp BP Pulse Ox 97.9 F 90 20 125/65 100 06/03/16 08:00 06/03/16 10:23 06/03/16 08:00 06/03/16 10:24 06/03/16 08:00 Intake and Output: 06/03/16 06/03/16 06:59 18:59 Intake Total 540 Balance 540 - Labs Labs: 06/03/16 07:00 06/03/16 07:00 PT 18.0 Seconds (9.9-11.8) H 06/01/16 02:50 INR 1.67 (0.93-1.08) H 06/01/16 02:50 APTT 29.2 Seconds (23.7-30.8) 06/01/16 02:50 Attending/Attestation - Attestation I have personally seen and examined this patient.: Yes I have fully participated in the care of the patient.: Yes I have reviewed all pertinent clinical information, including history, physical exam and plan: Yes Notes (Text): Patient was seen and examined with biomedical engineering technician .Agreed with resident assessment and plan. Patient mental status is improved.He is close to base line.He is tolerated food , we will get PT evaluation. Patient can be discharged home with increasing dose of Lactulose and will follow with his GI and his Oncologist. Management plan was discussed in detail with patient Education was provided.
[2016-06-03 07:17] LABS: HEMATOCRIT 39.6 % (42.0-52.0); MEAN CELL VOLUME 88.2 fL (80.0-105.0); MEAN CORPUSCULAR HEMOGLOBIN 31.6 pg (25.0-35.0); MEAN CORPUSCULAR HGB CONC 35.9 g/dl (31.0-37.0); MEAN PLATELET VOLUME 11.5 fl (7.0-11.0); PLATELET COUNT 156 [, 10^3/uL] (120.0-450.0); RED CELL DISTRIBUTION WIDTH 15.2 % (11.5-14.5); WHITE BLOOD COUNT 3.9 [, 10^3/ul] (4.5-11.0)
[2016-06-03 07:35] LABS: ADD MANUAL DIFF? YES
[2016-06-03 07:37] LABS: ALB/GLOB RATIO 0.8 (1.1-1.8); ALKALINE PHOSPHATASE 153 U/L (38-133); ALT/SGPT 64 U/L (7-56); AST/SGOT 82 U/L (15-59); BILIRUBIN,TOTAL 2.9 mg/dL (0.2-1.3); BLOOD UREA NITROGEN 15 mg/dL (7-21); CALCIUM 9.7 mg/dL (8.4-10.5); CARBON DIOXIDE 25 mmol/L (21-33); CHLORIDE 100 mmol/L (98-107); GFR AFRICAN-AMERICAN > 60; GLUCOSE,RANDOM 185 mg/dL (70-110); POTASSIUM 4.4 mmol/L (3.6-5.0); SODIUM 135 mmol/L (132-148); TOTAL PROTEIN 8.8 g/dL (5.8-8.3)
[2016-06-03 08:04] VITALS: PULSE 90; TEMP 97.9; O2SAT 100
[2016-06-03] MEDS: Insulin Lispro (humaLOG) LOW Coverage SC SCH ×2 (08:04→11:45)
[2016-06-03 09:45] LABS: ATYPICAL LYMPHOCYTE 2 % (0.0-0.0); BAND 4 % (0-2); NEUTROPHIL 50 % (50.0-70.0); PLATELET ESTIMATE NORMAL (NORMAL)
[2016-06-03 09:46] LABS: ANISOCYTOSIS SLIGHT
[2016-06-03] MEDS: MOTILIUM 10 MG PO SCH (10:24)
[2016-06-03] MEDS: B3 PO SCH (10:24)
[2016-06-03] MEDS: [UNRECOGNIZED DRUG - OTHER] PO SCH (10:24)
[2016-06-03] MEDS: B5 PO SCH (10:24)
[2016-06-03] MEDS: B6 PO SCH (10:24)
[2016-06-03] MEDS: B2 PO SCH (10:24)
[2016-06-03] MEDS: B12 PO SCH (10:24)
[2016-06-03] MEDS: VITAMIN C PO SCH (10:24)
[2016-06-03] MEDS: Multivitamin With Minerals Tab PO SCH (10:24)
[2016-06-03] MEDS: VIT B1 MN PO SCH (10:24)
[2016-06-03 10:33] VITALS: BP 125/65
--- NOTE | 2016-06-03 12:18 | CP.PCM.DIS ---
Provider - Provider Date of Admission: 05/31/16 21:39 Attending physician: Kitty Cabrera MD Primary care physician: JAYME Duke On[facility]ults: GI: Meredith Time Spent in preparation of Discharge (in minutes): 45 Hospital Course - Lab Results Lab Results: Micro Results 06/01/16 23:25 Urine Urine Culture - Final No Growth (<1,000 CFU/ML) Most Recent Lab Values WBC 3.9 10^3/ul (4.5-11.0) L D 06/03/16 07:00 RBC 4.49 10^6/uL (3.5-6.1) 06/03/16 07:00 Hgb 14.2 gm/dL (14.0-18.0) 06/03/16 07:00 Hct 39.6 % (42.0-52.0) L 06/03/16 07:00 MCV 88.2 fL (80.0-105.0) 06/03/16 07:00 MCH 31.6 pg (25.0-35.0) 06/03/16 07:00 MCHC 35.9 g/dl (31.0-37.0) 06/03/16 07:00 RDW 15.2 % (11.5-14.5) H 06/03/16 07:00 Plt Count 156 10^3/uL (120.0-450.0) 06/03/16 07:00 MPV 11.5 fl (7.0-11.0) H 06/03/16 07:00 Gran % 44.7 % (50.0-68.0) L 06/02/16 07:30 Lymph % (Auto) 33.4 % (22.0-35.0) 06/02/16 07:30 Story % (Auto) 19.2 % (1.0-6.0) H 06/02/16 07:30 Eos % (Auto) 2.0 % (1.5-5.0) 06/02/16 07:30 Baso % (Auto) 0.7 % (0.0-3.0) 06/02/16 07:30 Gran # 1.35 (1.4-6.5) L 06/02/16 07:30 Lymph # 1.0 (1.2-3.4) L 06/02/16 07:30 Story # 0.6 (0.1-0.6) 06/02/16 07:30 Eos # 0.1 (0.0-0.7) 06/02/16 07:30 Baso # 0.02 K/mm3 (0.0-2.0) 06/02/16 07:30 Neutrophils % (Manual) 50 % (50.0-70.0) 06/03/16 07:00 Band Neutrophils % 4 % (0-2) H 06/03/16 07:00 Lymphocytes % (Manual) 30 % (22.0-35.0) 06/03/16 07:00 Atypical Lymphs % 2 % (0.0-0.0) H 06/03/16 07:00 Monocytes % (Manual) 14 % (1.0-6.0) H 06/03/16 07:00 Eosinophils % (Manual) 1 % (0.0-3.0) 06/01/16 05:00 Toxic Granulation Slight 06/01/16 05:00 Platelet Evaluation Normal (NORMAL) 06/03/16 07:00 Anisocytosis (manual) Slight 06/03/16 07:00 Ovalocytes Slight 06/01/16 05:00 PT 18.0 Seconds (9.9-11.8) H 06/01/16 02:50 INR 1.67 (0.93-1.08) H 06/01/16 02:50 APTT 29.2 Seconds (23.7-30.8) 06/01/16 02:50 Sodium 135 mmol/L (132-148) 06/03/16 07:00 Potassium 4.4 mmol/L (3.6-5.0) 06/03/16 07:00 Chloride 100 mmol/L (98-107) 06/03/16 07:00 Carbon Dioxide 25 mmol/L (21-33) 06/03/16 07:00 Anion Gap 14 (10-20) 06/03/16 07:00 BUN 15 mg/dL (7-21) 06/03/16 07:00 Creatinine 0.8 mg/dL (0.5-1.4) 06/03/16 07:00 Est GFR ( Amer) > 60 06/03/16 07:00 Est GFR (Non-Af Amer) > 60 06/03/16 07:00 POC Glucose (mg/dL) 238 mg/dL (65-110) H 06/01/16 13:21 Random Glucose 185 mg/dL (70-110) H 06/03/16 07:00 Calcium 9.7 mg/dL (8.4-10.5) 06/03/16 07:00 Total Bilirubin 2.9 mg/dL (0.2-1.3) H 06/03/16 07:00 AST 82 U/L (15-59) H 06/03/16 07:00 ALT 64 U/L (7-56) H 06/03/16 07:00 Alkaline Phosphatase 153 U/L (38-133) H 06/03/16 07:00 Ammonia 131 umol/L (9-33) H 06/03/16 08:20 Total Protein 8.8 g/dL (5.8-8.3) H 06/03/16 07:00 Albumin 3.8 g/dL (3.0-4.8) 06/03/16 07:00 Globulin 5.0 gm/dL 06/03/16 07:00 Albumin/Globulin Ratio 0.8 (1.1-1.8) L 06/03/16 07:00 Urine Color Yellow (YELLOW) 06/01/16 23:25 Urine Appearance Slight-cloudy (CLEAR) 06/01/16 23:25 Urine pH 6.0 (4.7-8.0) 06/01/16 23:25 Ur Specific [place] >= 1.030 (1.005-1.035) 06/01/16 23:25 Urine Protein Negative mg/dL (<30 mg/dL) 06/01/16 23:25 Urine Glucose (UA) Negative mg/dL (NEGATIVE) 06/01/16 23:25 Urine Ketones Trace mg/dL (NEGATIVE) H 06/01/16 23:25 Urine Blood Moderate (NEGATIVE) H 06/01/16 23:25 Urine Nitrate Negative (NEGATIVE) 06/01/16 23:25 Urine Bilirubin Negative (NEGATIVE) 06/01/16 23:25 Urine Urobilinogen 0.2 E.U./dL (<1 E.U./dL) 06/01/16 23:25 Ur Leukocyte Esterase Negative Nanci/uL (NEGATIVE) 06/01/16 23:25 Urine RBC 1 - 3 /hpf (0-2) 06/01/16 23:25 Urine WBC 0 - 2 /hpf (0-6) 06/01/16 23:25 Ur Epithelial Cells 1 - 3 /hpf (0-5) 06/01/16 23:25 Urine Bacteria Small (NEG) 06/01/16 23:25 - Hospital Course Hospital Course: Upon Admission: 51yo M with PMHx of DM, Liver CA, Hep C, portal vein thrombosis, bleeding esophageal varices, brought in by and friend for evaluation of Altered mental status. Labs showed elevated Ammonia to 219. Rifaxamine and Lactulose was started. GI consult was obtained, patient with continued treatment with Lactulose and rifaxamin. Recent Chemo may have been precipitating factor. Ultrasound of the abdomen was obtained which showed portal vein thrombus which is chronic. Hospital course was uncomplicated, his mental status improved. The patient is to resume chemo as per his oncologist when stable and with outpatient follow up. Patient is to follow up with his GI as outpatient as well. Patient to continue taking lactulose 3 times daily for 2 weeks and take rifaximin. Discussed plan with patient and family, all questions were answered and the patient was discharged. 1. Hepatic Encephalopathy. 2. Hep C cirrohis 3. Portal vein thrombous 4. liver CA Upon Discharge: Discharge patient to home today. Follow up with PCP in the office next week Report to Medical Records for patient's chart. Report to the ED if your symptoms worsen. Patient is cleared for discharge as per Dr. Cabrera 1. Patient is to follow up with his PMD in 2-3 days. Keep your appointment 2. Take Lactulose as prescribed. Use Rifaximin as ordered as directed. 3. Patient may resume all home medications. 4. Return to the ER with any concerning symptoms. New Prescriptions: 1. Lactulose 20g/30ml PO QID #56/0 (Two week supply) 2. Rifaximin 550mg PO Daily #30/0 Discharge Exam - Head Exam Head Exam: ATRAUMATIC, NORMAL INSPECTION, NORMOCEPHALIC - Eye Exam Eye Exam: EOMI, Normal appearance, PERRL. absent: Scleral icterus Pupil Exam: PERRL - ENT Exam ENT Exam: Mucous Membranes Moist - Respiratory Exam Respiratory Exam: Clear to PA & Lateral, NORMAL BREATHING PATTERN, UNREMARKABLE. absent: Wheezes, Respiratory Distress, Stridor - Cardiovascular Exam Cardiovascular Exam: REGULAR RHYTHM, RRR, +S1, +S2. absent: JVD - GI/Abdominal Exam GI & Abdominal Exam: Normal Bowel Sounds, Soft. absent: Distended - Extremities Exam Extremities exam: normal inspection - Back Exam Back exam: NORMAL INSPECTION - Neurological Exam Neurological exam: Alert, CN II-XII Intact, Normal Gait, Oriented x3 - Psychiatric Exam Psychiatric exam: Normal Affect, Normal Mood - Skin Skin Exam: Dry, Intact, Normal Color, Warm Discharge Plan - Discharge Medications Prescriptions: Lactulose [Enulose] 20 gm PO QID #56 udc rifAXIMin [Xifaxan] 550 mg PO DAILY #30 tab - Follow Up Plan Condition: STABLE Disposition: HOME/ ROUTINE Instructions: Pneumococcal Vaccine for Adults (DC), Heart Healthy Diet (DC), Diabetes Mellitus Type 2 in Adults (DC), Influenza Vaccine (DC), Liver Cancer ( DC), Hepatic Encephalopathy (DC), Chronic Hypertension (DC), Fall Prevention (DC ) Additional Instructions: Discharge patient to home today. Follow up with PCP in the office next week Report to Medical Records for patient's chart. Report to the ED if your symptoms worsen. Patient is cleared for discharge as per Dr. Cabrera 1. Patient is to follow up with his PMD in 2-3 days. Keep your appointment 2. Take Lactulose as prescribed. Use Rifaximin as ordered as directed. 3. Patient may resume all home medications. 4. Return to the ER with any concerning symptoms. New Prescriptions: 1. Lactulose 20g/30ml PO QID #56/0 (Two week supply) 2. Rifaximin 550mg PO Daily #30/0 Referrals: PCP,NO [Primary Care Provider] -
--- NOTE | 2016-06-03 13:10 | CP.PCM.PN ---
Subjective - Date & Time of Evaluation Date of Evaluation: 06/03/16 Time of Evaluation: 13:07 - Subjective Subjective: Patient seen and examined. No acute events. He is improved, ambulating and tolerating PO without difficulty. No current abdominal pain, nausea or vomiting. Having multiple BM with use of lactulose. ROS otherwise negative in detail Objective - Vital Signs/Intake and Output Vital Signs (last 24 hours): Temp Pulse Resp BP Pulse Ox 97.9 F 90 20 125/65 100 06/03/16 08:00 06/03/16 10:23 06/03/16 08:00 06/03/16 10:24 06/03/16 08:00 Intake and Output: 06/03/16 06/03/16 06:59 18:59 Intake Total 540 Balance 540 - Labs Labs: 06/03/16 07:00 06/03/16 07:00 PT 18.0 Seconds (9.9-11.8) H 06/01/16 02:50 INR 1.67 (0.93-1.08) H 06/01/16 02:50 APTT 29.2 Seconds (23.7-30.8) 06/01/16 02:50 - Constitutional Appears: No Acute Distress - Eye Exam Eye Exam: Scleral icterus - ENT Exam ENT Exam: Mucous Membranes Moist - Respiratory Exam Respiratory Exam: Clear to Ausculation Bilateral - Cardiovascular Exam Cardiovascular Exam: +S1, +S2 - GI/Abdominal Exam Additional comments: abdomen soft, non tender to palpation, bowel sounds present, no palpable mass - Extremities Exam Extremities Exam: absent: Pedal Edema - Neurological Exam Neurological Exam: Alert, Oriented x3 - Skin Skin Exam: Dry Assessment and Plan - Assessment and Plan (Free Text) Assessment: 51 year old male with h/o HCV s/p treatment (2014), HCV Cirrhosis c/b HCC [place] [facility] [place]1 week ago FOLFOX and experimental chemo, sees Dr. Vale), PV thrombosis, esophageal varices who is admitted with hepatic encephalopathy. Plan: Symptomatically improved Continue lactulose, titrate to 2-3BM/day Continue xifaxin Monitor LFTs Low salt diet as tolerated He will need to follow up with his outpatient aids counselor/oncologist at [facility] [place]
== END 2016-06-03 13:04 | disposition home or self-care (01) | DRG 557 ==
LOC: ED 15:55 → ERH 21:39 → 5RNO 06-01 14:27
PROVIDERS: ADMIT Internal Medicine; ATTEND Internal Medicine
DX: K72.90 Hepatic failure, unspecified without coma (principal); I81 Portal vein thrombosis; C22.8 Malignant neoplasm of liver, primary, unspecified as to type; D61.1 Drug-induced aplastic anemia; I85.10 Secondary esophageal varices without bleeding; I10 Essential (primary) hypertension; D72.819 Decreased white blood cell count, unspecified; B19.20 Unspecified viral hepatitis C without hepatic coma; K74.60 Unspecified cirrhosis of liver; E11.9 Type 2 diabetes mellitus without complications; T45.1X5A Adverse effect of antineoplastic and immunosuppressive drugs, initial encounter; K80.20 Calculus of gallbladder without cholecystitis without obstruction; Z79.899 Other long term (current) drug therapy; Z82.49 Family history of ischemic heart disease and other diseases of the circulatory system; Z92.3 Personal history of irradiation; K21.9 Gastro-esophageal reflux disease without esophagitis; Z87.442 Personal history of urinary calculi; Z88.6 Allergy status to analgesic agent; K76.6 Portal hypertension; R27.8 Other lack of coordination; R11.2 Nausea with vomiting, unspecified

== ENCOUNTER 2016-06-15 19:33 | Inpatient (IN) | payer MEDICAID ==
[2016-06-15 20:08] VITALS: BMI 34.7
[2016-06-15] MEDS ORDERED: Sodium Chloride 0.9% 1,000 ML IV STA ×2 (20:17)
--- NOTE | 2016-06-15 20:20 | ED PDOC ---
Arrival/HPI - General Chief Complaint: Fever Time Seen by Provider: 06/15/16 20:05 - History of Present Illness Narrative History of Present Illness (Text): 06/15/16 20:17 51M c/o fever that started 5 hours ago. he has stage III liver carcinoma, undergoing chemo in [place], last 3 weeks ago. had an upper endo yesterday for banding of varices. he has chronic right side abd pain which is no different today. he also has chronic diarrhea from lactulose. pt denies any cough, vomiting, dysuria, other sx. his has flu-like sx since yesterday. Past Medical History - Infectious Disease Hx of Infectious Diseases: None - Cardiac Hx Cardiac Disorders: Yes Hx Hypertension: Yes - Pulmonary Hx Respiratory Disorders: Yes Other/Comment: portal vein thrombosis - Renal Hx Renal Disorder: Yes Hx Kidney Stones: Yes (X2) - Endocrine/Metabolic Hx Diabetes Mellitus Type 2: Yes - Hematological/Oncological Hx Blood Disorders: Yes Hx Anemia: Yes (WEEKLY IV INFUSION AT [facility]) Hx Cancer: Yes (LIVER CA -COMPLETED RADIATION) Hx Chemotherapy: Yes Hx Hepatitis C: Yes Other/Comment: portal vein thrombosis - Musculoskeletal/Rheumatological Hx Falls: No - Gastrointestinal Hx Gastrointestinal Disorders: Yes (UPPER GI BLEED ,CORRHOSIS OF LIVER) Hx Gall Bladder Disease: Yes (GALLSTONES) Hx Gastroesophageal Reflux: Yes Other/Comment: Esophageal varices - Psychiatric Hx Substance Use: No - Surgical History Other/Comment: Banding due to esophageal varices - Anesthesia Hx Anesthesia: Yes Hx Anesthesia Reactions: No Family/Social History Family/Social History: Other (nc) Smoking Status: Never Smoked Hx Alcohol Use: No Hx Substance Use: No Allergies/Home Meds Allergies/Adverse Reactions: Allergies aspirin Allergy (Mild, Verified 06/01/16 12:55) VOMITING Home Medications: Home Meds Medication Instructions Recorded Confirmed Lisinopril [Zestril] 2.5 mg PO DAILY 05/31/16 06/15/16 Omeprazole 40 mg DAILY 05/31/16 06/15/16 SITagliptin [Januvia] 100 mg PO DAILY 05/31/16 06/15/16 Motilium 10 mg PO DAILY 06/01/16 06/15/16 Mv-Mn/FA/Vit K/Lycop/Lut/Coq10 1 cap PO DAILY 06/01/16 06/15/16 [Daily Multivitamin Capsule] Propranolol [Inderal] 20 mg PO BID 06/01/16 06/15/16 Vit B1 Mn/B2/B3/B5/B6/B12/C/FA [B 1 tab PO DAILY 06/01/16 06/15/16 Complex with Vitamin C Tab] Spironolactone [Aldactone] 25 mg PO DAILY 06/15/16 06/15/16 Review of Systems - Physician Review All systems were reviewed & negative as marked: Yes - Review of Systems Constitutional: Fevers Respiratory: absent: SOB, Cough, Sputum Cardiovascular: absent: Chest Pain Gastrointestinal: Abdominal Pain, Diarrhea. absent: Nausea, Vomiting Genitourinary Male: absent: Dysuria, Frequency Skin: absent: Rash Neurological: absent: Headache, Focal Weakness Physical Exam Vital Signs Reviewed: Yes Vital Signs Temp Pulse Resp BP Pulse Ox 06/16/16 00:26 99.9 F H 88 18 137/74 98 06/15/16 22:00 91 H 18 124/77 99 06/15/16 20:08 103.1 F H 103 H 18 110/72 93 L Appearance: Positive for: Well-Appearing, Non-Toxic, Comfortable Pain Distress: None Mental Status: Positive for: Alert and Oriented X 3 - Systems Exam Head: Present: Atraumatic, Normocephalic Pupils: Present: PERRL Conjunctiva: Present: Normal Mouth: Present: Moist Mucous Membranes Neck: Present: Normal Range of Motion Respiratory/Chest: Present: Clear to Auscultation. No: Respiratory Distress, Accessory Muscle Use Abdomen: Present: Tenderness (RUQ), Distention (ascites). No: Peritoneal Signs , Rebound, Guarding Upper Extremity: Present: NORMAL PULSES Lower Extremity: Present: NORMAL PULSES. No: Edema Neurological: Present: GCS=15, CN II-XII Intact, Motor Func Grossly Intact, Normal Sensory Function Skin: Present: Warm, Dry Psychiatric: Present: Alert, Oriented x 3 Medical Decision Making - Lab Interpretations Microbiology Results: Microbiology Results 06/15/16 20:16 Blood-Venous Blood Culture - Preliminary NO GROWTH AFTER 3 DAYS 06/15/16 20:46 Blood-Venous Blood Culture - Preliminary NO GROWTH AFTER 48 HOURS Lab Results: 06/15/16 20:16 06/15/16 20:16 Lab Results 06/15/16 23:14: Influenza Typ A,B (EIA) Negative for flu a/b 06/15/16 20:16: WBC 11.3 H D, RBC 4.08, Hgb 13.0 L, Hct 36.8 L, MCV 90.2, MCH 31.9, MCHC 35.3, RDW 16.9 H, Plt Count 182, MPV 10.6, Gran % 85.4 H, Lymph % ( Auto) 6.1 L, [place] % (Auto) 7.6 H, Eos % (Auto) 0.6 L, Baso % (Auto) 0.3, Gran # 9.64 H, Lymph # 0.7 L, [place] # 0.9 H, Eos # 0.1, Baso # 0.03, pO2 62 H, VBG pH 7.41, VBG pCO2 41.0, VBG HCO3 26.0, VBG Total CO2 27.3, VBG O2 Sat (Calc) 94.2 H , VBG Base Excess 1.2, VBG Potassium 4.2, Glucose 185 H, Lactate 2.2 H, FiO2 21.0, Sodium 133.0, Potassium 4.3, Chloride 102.0, Carbon Dioxide 26, Anion Gap 10, BUN 8, Creatinine 0.7, Est GFR ( Amer) > 60, Est GFR (Non-Af Amer) > 60, Random Glucose 178 H, Calcium 8.7, Total Bilirubin 1.3, AST 56, ALT 41, Alkaline Phosphatase 123, Total Protein 8.0, Albumin 3.2, Globulin 4.8, Albumin/ Globulin Ratio 0.7 L, Lipase 150, Venous Blood Potassium 4.2 - RAD Interpretation Radiology Orders: 06/15/16 20:16 CHEST PORTABLE [RAD] Stat - Medication Orders Current Medication Orders: Discontinued Medications Acetaminophen (Tylenol 325mg Tab) 650 mg PO Q6H PRN PRN Reason: Fever >100.4 F Acetaminophen (Tylenol 325mg Tab) 650 mg PO STAT STA Stop: 06/16/16 01:04 Last Admin: 06/16/16 07:03 Dose: 650 MG MAR Pain/Vitals Document 06/16/16 07:03 MJ (Rec: 06/16/16 07:03 MJ [id number]) Pain Reassessment Is This A Pain ReAssessment? No Sleep Is patient sleeping during reassessment? No Presence of Pain Presence of Pain No Vitals Temperature (97.6 F-99.6 F) 100.7 F Home Med (*Refrigerator Open) Confirm Administered Dose 1 unit XX .STK-MED ONE Stop: 06/16/16 07:42 Sodium Chloride (Sodium Chloride 0.9%) 1,000 mls @ 999 mls/hr IV .Q1H1M STA Stop: 06/15/16 21:17 Last Admin: 06/15/16 21:46 Dose: 999 MLS/HR eMAR Start Stop Document 06/15/16 21:46 MAIA (Rec: 06/15/16 21:46 MAIA [id number]) Intravenous Solution Start Date 06/15/16 Start Time 21:46 End Date 06/15/16 End time 22:46 Total Infusion Time 60 Sodium Chloride (Sodium Chloride 0.9%) 1,000 mls @ 999 mls/hr IV .Q1H1M STA Stop: 06/15/16 21:17 Last Admin: 06/15/16 21:46 Dose: 999 MLS/HR eMAR Start Stop Document 06/15/16 21:46 MAIA (Rec: 06/15/16 21:46 MAIA [id number]) Intravenous Solution Start Date 06/15/16 Start Time 21:46 End Date 06/15/16 End time 22:46 Total Infusion Time 60 Piperacillin Sod/Tazobactam Sod (Zosyn 3.375 In Ns 100ml) 100 mls @ 200 mls/hr IVPB STAT STA PRN Reason: Protocol Stop: 06/15/16 21:53 Last Admin: 06/15/16 21:45 Dose: 200 MLS/HR eMAR Start Stop Document 06/15/16 21:45 MAIA (Rec: 06/15/16 21:46 MAIA [id number]) Intravenous Solution Start Date 06/15/16 Start Time 21:46 End Date 06/15/16 End time 22:16 Total Infusion Time 30 Vancomycin HCl 1.5 gm/ Sodium (Chloride) 500 mls @ 167 mls/hr IVPB STAT STA Stop: 06/16/16 01:01 Last Admin: 06/15/16 22:59 Dose: 167 MLS/HR eMAR Start Stop Document 06/15/16 22:59 MAIA (Rec: 06/15/16 22:59 MAIA [id number] Intravenous Solution Start Date 06/15/16 Start Time 22:59 Sodium Chloride (Sodium Chloride 0.9%) 1,000 mls @ 100 mls/hr IV .Q10H MELY Last Admin: 06/17/16 05:51 Dose: 100 MLS/HR eMAR Start Stop Document 06/17/16 05:51 B.P (Rec: 06/17/16 05:51 B.P [id number]) Intravenous Solution Start Date 06/17/16 Start Time 05:51 Vancomycin HCl (Vancomycin 1gm) 250 mls @ 167 mls/hr IVPB DAILY MELY PRN Reason: Protocol Meropenem 1 gm/ Sodium (Chloride) 100 mls @ 100 mls/hr IVPB Q8 MELY PRN Reason: Protocol Stop: 06/23/16 06:01 Last Admin: 06/16/16 22:05 Dose: 100 MLS/HR eMAR Start Stop Document 06/16/16 22:05 B.P (Rec: 06/16/16 22:06 B.P [id number]) Intravenous Solution Start Date 06/16/16 Start Time 21:00 End Date 06/16/16 End time 22:00 Total Infusion Time 60 Vancomycin HCl (Vancomycin 1gm) 250 mls @ 167 mls/hr IVPB Q12H MELY PRN Reason: Protocol Stop: 06/23/16 11:01 Last Admin: 06/17/16 11:50 Dose: 167 MLS/HR eMAR Start Stop Document 06/17/16 11:50 MCV (Rec: 06/17/16 11:50 MCV [id number]) Intravenous Solution Start Date 06/17/16 Start Time 11:50 End Date 06/17/16 End time 13:20 Total Infusion Time 90 Meropenem 1g/NS 100mL IVPB (Meropenem 1g/Ns 100ml Ivpb) 100 mls @ 100 mls/hr IVPB Q8 MELY PRN Reason: Protocol Stop: 06/23/16 06:01 Last Admin: 06/17/16 14:24 Dose: 100 MLS/HR eMAR Start Stop Document 06/17/16 14:24 MCV (Rec: 06/17/16 14:25 MCV [id number]) Intravenous Solution Start Date 06/17/16 Start Time 14:25 End Date 06/17/16 End time 15:25 Total Infusion Time 60 Insulin Human Regular (Humulin R Low) 0 units SC ACHS MELY PRN Reason: Protocol Last Admin: 06/17/16 12:46 Dose: 1 UNITS MAR Blood Glucose Document 06/17/16 12:46 MCV (Rec: 06/17/16 12:46 MCV [id number]) Blood Glucose Finger Stick Blood Glucose (70-120) 178 Subcutaneous Administrations Document 06/17/16 12:46 MCV (Rec: 06/17/16 12:46 MCV [id number]) Injection Site MAR Injection Site Left Arm Charges for Administration # of Subcutaneous Administrations 1 Ketorolac Tromethamine (Toradol) 10 mg IVP STAT STA Stop: 06/15/16 21:33 Last Admin: 06/15/16 21:51 Dose: 10 MG IVP Administration Document 06/15/16 21:51 MAIA (Rec: 06/15/16 21:51 MAIA [id number]) Charges for Administration # of IVP Administrations 1 Lactulose (Enulose) 20 gm PO QID [facility] Last Admin: 06/17/16 14:24 Dose: 20 GM Lisinopril (Zestril) 2.5 mg PO DAILY [facility] Last Admin: 06/17/16 10:12 Dose: 2.5 MG MAR Pulse and Blood Pressure Document 06/17/16 10:12 MCV (Rec: 06/17/16 10:12 MCV [id number]) Pulse Pulse Rate (60-90) 83 Blood Pressure Blood Pressure (100/60-150/90) 113/69 Non-Formulary Medication (Motilium) 10 mg PO DAILY [facility] Last Admin: 06/17/16 10:14 Dose: Non-Formulary Medication (Mv-Mn/Fa/Vit K/Lycop/Lut/Coq10 [Daily Multivitamin Capsule]) 1 cap PO DAILY [facility] Last Admin: 06/17/16 10:14 Dose: Non-Formulary Medication (Vit B1 Mn/B2/B3/B5/B6/B12/C/Fa [B Complex With Vitamin C Tab]) 1 tab PO DAILY [facility] Last Admin: 06/17/16 10:15 Dose: Oseltamivir Phosphate (Tamiflu Cap) 75 mg PO BID [facility] PRN Reason: Protocol Stop: 06/21/16 05:57 Last Admin: 06/17/16 10:12 Dose: 75 MG Pantoprazole Sodium (Protonix Inj) 40 mg IVP DAILY [facility] Last Admin: 06/17/16 10:12 Dose: 40 MG IVP Administration Document 06/17/16 10:12 MCV (Rec: 06/17/16 10:[address]) Charges for Administration # of IVP Administrations 1 Propranolol HCl (Inderal) 20 mg PO BID [facility] Last Admin: 06/17/16 10:11 Dose: 20 MG MAR Pulse and Blood Pressure Document 06/17/16 10:11 MCV (Rec: 06/17/16 10:[address]) Pulse Pulse Rate (60-90) 83 Blood Pressure Blood Pressure (100/60-150/90) 113/69 Rifaximin (Xifaxan) 550 mg PO DAILY [facility] PRN Reason: Protocol Last Admin: 06/17/16 10:11 Dose: 550 MG Sitagliptin Phosphate (Januvia) 100 mg PO DAILY [facility] Last Admin: 06/17/16 10:12 Dose: 100 MG Spironolactone (Aldactone) 25 mg PO DAILY [facility] Last Admin: 06/17/16 10:11 Dose: 25 MG Disposition/Present on Arrival - Present on Arrival Any Indicators Present on Arrival: No History of DVT/PE: No History of Uncontrolled Diabetes: No Urinary Catheter: No History of Decub. Ulcer: No History Surgical Site Infection Following: None - Disposition Have Diagnosis and Disposition been Completed?: Yes Diagnosis: Fever, Hepatocellular carcinoma Disposition: HOSPITALIZED Disposition Time: 23:23 Condition: STABLE
[2016-06-15 20:45] LABS: ADD MANUAL DIFF? NO
[2016-06-15 20:51] LABS: BASO # 0.03 K/mm3 (0.0-2.0); BASO % 0.3 % (0.0-3.0); EOS # 0.1 (0.0-0.7); EOS % 0.6 % (1.5-5.0); GRAN # 9.64 (1.4-6.5); GRAN % 85.4 % (50.0-68.0); HEMATOCRIT 36.8 % (42.0-52.0); LYMPH # 0.7 (1.2-3.4); LYMPH % 6.1 % (22.0-35.0); MEAN CELL VOLUME 90.2 fL (80.0-105.0); MEAN CORPUSCULAR HEMOGLOBIN 31.9 pg (25.0-35.0); MEAN CORPUSCULAR HGB CONC 35.3 g/dl (31.0-37.0); MEAN PLATELET VOLUME 10.6 fl (7.0-11.0); MONO # 0.9 (0.1-0.6); MONO % 7.6 % (1.0-6.0); PLATELET COUNT 182 10^3/uL (120.0-450.0); RED CELL DISTRIBUTION WIDTH 16.9 % (11.5-14.5); VENOUS BLOOD GAS BASE EXCESS 1.2 mmol/L (0.0-2.0); VENOUS BLOOD PH 7.41 (7.32-7.43); WHITE BLOOD COUNT 11.3 10^3/ul (4.5-11.0)
[2016-06-15 21:02] LABS: ALB/GLOB RATIO 0.7 (1.1-1.8); ALKALINE PHOSPHATASE 123 U/L (38-133); ALT/SGPT 41 U/L (7-56); AST/SGOT 56 U/L (15-59); BILIRUBIN,TOTAL 1.3 mg/dL (0.2-1.3); BLOOD UREA NITROGEN 8 mg/dL (7-21); CALCIUM 8.7 mg/dL (8.4-10.5); CARBON DIOXIDE 26 mmol/L (21-33); CHLORIDE 99 mmol/L (98-107); GFR AFRICAN-AMERICAN > 60; GLUCOSE,RANDOM 178 mg/dL (70-110); LIPASE 150 U/L (23-300); POTASSIUM 4.3 mmol/L (3.6-5.0); SODIUM 131 mmol/L (132-148)
[2016-06-15] MEDS ORDERED: Piperacillin/Tazobact 3.375 gm 100 ML IVPB STA (21:24)
[2016-06-15] MEDS ORDERED: Vancomycin 500 mg Inj IVPB STA (21:24)
[2016-06-15] MEDS ORDERED: Vancomycin 1.5 GM in Sodium Chloride 0.9% 500 ML IVPB STA (22:02)
--- NOTE | 2016-06-16 00:10 | CP.PCM.HP ---
<Thomas Boswell - Last Filed: 06/16/16 00:24> History of Present Illness - History of Present Illness History of Present Illness: This is a 51 year old male with past medical hx of HCV s/p treatment in 2014 complicated by cirrhosis with hepatocellular carcinoma [place] [facility] [place] (last dose reportedly 3 week ago, sees Dr. Vale), portal vein thrombosis, esophageal varices who ws recently admitted with hepatic encephalopathy, possibly precipitated by chemo regimen. Pt was at [facility] getting infusion of platelets when he was found to have fever of 103. He was advised to come to hospital. He reports chills and night sweats, denies weight loss. Denies recent travel. Says and daughter have flu. No pets. Denies muscle aches. Denies vomiting, but reports diarrhea, 5 episodes, non bloody today. Reports intermittent abdominal pain RUQ. Denies cp , sob, cough. Denies urinary sx, denies blood in BM. PMH: Diabetes type 2, liver cancer, diagnosed 2 years ago, s/p radiation then Nexavar. Now on chemo trial at [facility]. Got last dose 3 weeks ago, also goes for platelet transfusion, hepatitis c, portal vein thrombosis, esophageal varices s/p banding, upper GI beeding and his last episode was on october 10 2014 and he was told never to take any anticoagulants and antiplatelets PSH: Ligation of varices, appendectomy Allergies: ASA FH: DM in family Social hx: Denies smoking, drinking, drug use. Born in [place]. Not currently working. Lives with and kids. Formerly worked as a cart driver. Present on Admission - Present on Admission Any Indicators Present on Admission: No History of DVT/PE: No History of Uncontrolled Diabetes: No Urinary Catheter: No Decubitus Ulcer Present: No Review of Systems - Review of Systems All systems: reviewed and no additional remarkable complaints except Review of Systems: Negative except as stated in HPI. Past Patient History - Infectious Disease Hx of Infectious Diseases: None - Tetanus Immunizations Tetanus Immunization: Unknown - Past Medical History & Family History Past Medical History?: Yes Pertinent Family History: DM in family - Past Social History Smoking Status: Never Smoked Chewing Tobacco Use: No Cigar Use: No Alcohol: None Drugs: Denies Home Situation {Lives}: With Family Domestic Violence: Negative - CARDIAC Hx Cardiac Disorders: Yes Hx Hypertension: Yes - PULMONARY Hx Respiratory Disorders: Yes Other/Comment: portal vein thrombosis - RENAL Hx Chronic Kidney Disease: Yes Hx Kidney Stones: Yes (X2) - ENDOCRINE/METABOLIC Hx Diabetes Mellitus Type 2: Yes - HEMATOLOGICAL/ONCOLOGICAL Hx Blood Disorders: Yes Hx Anemia: Yes (WEEKLY IV INFUSION AT [facility]) Hx Cancer: Yes (LIVER CA -COMPLETED RADIATION) Hx Chemotherapy: Yes Hx Hepatitis C: Yes Other/Comment: portal vein thrombosis - MUSCULOSKELETAL/RHEUMATOLOGICAL Hx Falls: No - GASTROINTESTINAL Hx Gastrointestinal Disorders: Yes (UPPER GI BLEED ,CORRHOSIS OF LIVER) Hx Gall Bladder Disease: Yes (GALLSTONES) Hx Gastroesophageal Reflux: Yes Other/Comment: Esophageal varices - PSYCHIATRIC Hx Substance Use: No - SURGICAL HISTORY Other/Comment: Banding due to esophageal varices - ANESTHESIA Hx Anesthesia: Yes Hx Anesthesia Reactions: No Meds Allergies/Adverse Reactions: Allergies Allergy/AdvReac Type Severity Reaction Status Date / Time aspirin Allergy Mild VOMITING Verified 06/01/16 12:55 Physical Exam - Constitutional Appears: Non-toxic, No Acute Distress - Head Exam Head Exam: ATRAUMATIC, NORMAL INSPECTION, NORMOCEPHALIC - Eye Exam Eye Exam: EOMI - ENT Exam ENT Exam: Mucous Membranes Moist - Neck Exam Neck exam: Positive for: Normal Inspection - Respiratory Exam Respiratory Exam: Clear to Auscultation Bilateral, NORMAL BREATHING PATTERN - Cardiovascular Exam Cardiovascular Exam: REGULAR RHYTHM, +S1, +S2 - GI/Abdominal Exam GI & Abdominal Exam: Distended, Hyperactive Bowel Sounds, Tenderness Additional comments: Mild tenderness RUQ - Extremities Exam Extremities exam: Positive for: normal inspection - Back Exam Back exam: NORMAL INSPECTION - Neurological Exam Neurological exam: Alert, Oriented x3 - Psychiatric Exam Psychiatric exam: Normal Affect, Normal Mood - Skin Skin Exam: Dry, Intact, Normal Color, Warm Results - Vital Signs Recent Vital Signs: Last Vital Signs Temp 103.1 F H 06/15/16 20:08 Pulse 103 H 06/15/16 20:08 Resp 18 06/15/16 20:08 BP 110/72 06/15/16 20:08 Pulse Ox 93 L 06/15/16 20:08 - Labs Result Diagrams: 06/15/16 20:16 06/15/16 20:16 Labs: Laboratory Results - last 24 hr 06/15/16 06/15/16 20:16 23:14 WBC 11.3 H D RBC 4.08 Hgb 13.0 L Hct 36.8 L MCV 90.2 MCH 31.9 MCHC 35.3 RDW 16.9 H Plt Count 182 MPV 10.6 Gran % 85.4 H Lymph % (Auto) 6.1 L Bland % (Auto) 7.6 H Eos % (Auto) 0.6 L Baso % (Auto) 0.3 Gran # 9.64 H Lymph # 0.7 L Bland # 0.9 H Eos # 0.1 Baso # 0.03 pO2 62 H VBG pH 7.41 VBG pCO2 41.0 VBG HCO3 26.0 VBG Total CO2 27.3 VBG O2 Sat (Calc) 94.2 H VBG Base Excess 1.2 VBG Potassium 4.2 Sodium 131 L Chloride 99 Glucose 185 H Lactate 2.2 H FiO2 21.0 Potassium 4.3 Carbon Dioxide 26 Anion Gap 10 BUN 8 Creatinine 0.7 Est GFR ( Amer) > 60 Est GFR (Non-Af Amer) > 60 Random Glucose 178 H Calcium 8.7 Total Bilirubin 1.3 AST 56 ALT 41 Alkaline Phosphatase 123 Total Protein 8.0 Albumin 3.2 Globulin 4.8 Albumin/Globulin Ratio 0.7 L Lipase 150 Venous Blood Potassium 4.2 Influenza Typ A,B (EIA) Negative for flu a/b Assessment & Plan - Assessment and Plan (Free Text) Assessment: This is a 51 yo male with past medical hx of hep C, hepatocellular carcinoma, DM , hepatic encephalopathy, esophageal varices presenting with high fever of unknown origin 1. Fever of unknown origin -we will start vanco daily -we will start zosyn q 6 -ID consult. Dr. Vasques. recs appreciated -blood/urine cultures pending -NS @ 100 -CXR pending -HIV -mono pending -RPR -rapid strep -rapid flu -HERMES pending -VBG shows ph 7.41 and lactate 2.2 -trend lactic acid -stool c diff studies -stool occult blood -stool culture -stool ova and parasites -tylenol for fever 2. Hx of hepatic encephalopathy -ammonia level -GI consult. Dr. Ge. recs appreciated -continue motilium -continue MVs -continue spironolactone -continue lactulose -continue rifaximin 3. hx of DM -ISS -continue januvia 4. hx of varices -continue propanolol 5. hx of HTN -continue lisinopril 6. hyponatremia -NS 100 -urine Cr -serum/urine osmo -urine Cl/urine Na -TSH -uric acid 7. GI/DVT ppx -protonix -SCDs dw Dr. Cates <Hiwot Cates - Last Filed: 06/26/16 04:12> Results - Vital Signs Recent Vital Signs: Last Vital Signs Temp 98.9 F 06/17/16 07:48 Pulse 83 06/17/16 10:12 Resp 20 06/17/16 07:48 BP 113/69 06/17/16 10:12 Pulse Ox 95 06/17/16 07:48 - Labs Result Diagrams: 06/16/16 06:30 06/16/16 06:30 Attending/Attestation - Attestation I have personally seen and examined this patient.: Yes I have fully participated in the care of the patient.: Yes I have reviewed all pertinent clinical information: Yes Notes (Text): 06/26/16 04:12 Agree with history , physical examination, assessment and plan.
[2016-06-16 02:50] LABS: VENOUS BLOOD GAS BASE EXCESS 0.1 mmol/L (0.0-2.0); VENOUS BLOOD PH 7.44 (7.32-7.43)
[2016-06-16] MEDS ORDERED: Piperacillin/Tazobact 3.375 gm 100 ML IVPB SCH (06:00)
[2016-06-16 07:07] LABS: ADD MANUAL DIFF? NO
[2016-06-16 07:32] LABS: ALB/GLOB RATIO 0.7 (1.1-1.8); ALKALINE PHOSPHATASE 96 U/L (38-133); ALT/SGPT 41 U/L (7-56); AST/SGOT 43 U/L (15-59); BILIRUBIN,TOTAL 1.3 mg/dL (0.2-1.3); BLOOD UREA NITROGEN 12 mg/dL (7-21); CALCIUM 8.2 mg/dL (8.4-10.5); CARBON DIOXIDE 23 mmol/L (21-33); CHLORIDE 103 mmol/L (95-110); GFR AFRICAN-AMERICAN > 60; GLUCOSE,RANDOM 179 mg/dL (70-110); POTASSIUM 4.3 mmol/L (3.6-5.0); SODIUM 133 mmol/L (132-148); TOTAL PROTEIN 6.7 g/dL (5.8-8.3); URIC ACID 3.1 mg/dL (3.5-8.5)
[2016-06-16 07:36] LABS: BASO # 0.02 K/mm3 (0.0-2.0); BASO % 0.3 % (0.0-3.0); EOS % 0.6 % (1.5-5.0); GRAN # 5.66 (1.4-6.5); GRAN % 79.3 % (50.0-68.0); HEMATOCRIT 32.4 % (42.0-52.0); LYMPH # 0.7 (1.2-3.4); LYMPH % 10.4 % (22.0-35.0); MEAN CELL VOLUME 91.5 fL (80.0-105.0); MEAN CORPUSCULAR HEMOGLOBIN 31.9 pg (25.0-35.0); MEAN CORPUSCULAR HGB CONC 34.9 g/dl (31.0-37.0); MEAN PLATELET VOLUME 10.6 fl (7.0-11.0); MONO # 0.7 (0.1-0.6); MONO % 9.4 % (1.0-6.0); PLATELET COUNT 159 10^3/uL (120.0-450.0); RED CELL DISTRIBUTION WIDTH 17.2 % (11.5-14.5); WHITE BLOOD COUNT 7.1 10^3/ul (4.5-11.0)
[2016-06-16 08:01] LABS: THYROID STIMULATING HORMONE 1.28 mIU/mL (0.46-4.68)
[2016-06-16] MEDS: Insulin Reg-LOW-Coverage SC SCH ×5 (08:15→22:05)
[2016-06-16] MEDS ORDERED: Vancomycin 1gm in NS 250ml 250 ML IVPB SCH (10:00)
--- NOTE | 2016-06-16 10:31 | RAD ---
HISTORY: fever COMPARISON: 05/31/2016 FINDINGS: LUNGS: No active pulmonary disease. PLEURA: No significant pleural effusion identified, no pneumothorax apparent. CARDIOVASCULAR: Normal. OSSEOUS STRUCTURES: No significant abnormalities. VISUALIZED UPPER ABDOMEN: Normal. OTHER FINDINGS: None. IMPRESSION: No active disease.
--- NOTE | 2016-06-16 10:52 | CON ---
DATE: 06/16/2016 REQUESTING PHYSICIAN: Dr. Cabrera. REASON FOR CONSULTATION: I have been asked to see this 51-year-old male with known hepatocellular ca rcinoma, cirrhosis, esophageal varices, hepatic encephalopathy, status post chemotherapy about 2 week s ago, who was admitted to the hospital with fever. The patient's influenza serology was negative. The patient had an upper endoscopy with banding of esophageal varices last week at [facility] in [place]. He also had an episode of hepatic encephalopathy in the recent past treated with lactul ose and Xifaxan. He currently is awake and alert. He denies any melena, rectal bleeding, nausea, vo miting or hematemesis. PAST MEDICAL HISTORY: Again is notable for stage III liver carcinoma, cirrhosis of the liver, esopha geal varices, hepatic encephalopathy, portal vein thrombosis, kidney stones, diabetes mellitus, chron ic anemia. SOCIAL HISTORY: He denies cigarette smoking or alcohol use. FAMILY HISTORY: Noncontributory. REVIEW OF SYSTEMS: A 14-point review of systems is positive for fever. PHYSICAL EXAMINATION: GENERAL: Well-developed male lying in bed in no acute distress. VITAL SIGNS: Reveal temperature of 100.7, blood pressure 110/58, heart rate of 100. HEENT: Reveals sclerae to be white, conjunctivae pink. NECK: Supple. CHEST: Lungs are clear. HEART: Reveals a regular rate and rhythm. ABDOMEN: Soft, mild right upper quadrant tenderness. No rebound, no guarding. EXTREMITIES: Show no edema. There is no asterixis. LABORATORY DATA: Reveal blood sugar of 179. AST, ALT, alk phos are all normal. Serum ammonia is 35 . CBC reveals hemoglobin 11.3, white blood cell count 7.1. IMPRESSION: A 51-year-old male with known cirrhosis of the liver, status post chemotherapy approxima tely 2 weeks ago, status post upper endoscopy with banding of esophageal varices, history of hepatic encephalopathy with fever. There are no blood or urine cultures available at this time. Serum influ elder levels are negative. His liver cancer and cirrhosis are stable. RECOMMENDATIONS: 1. Continue lactulose, Xifaxan and Inderal. 2. The patient can follow up with hepatology at [facility] in [place] and his oncologist at [facility] Carter Ge MD cc: [id number] TT: 06/16/2016 10:52:15 Confirmation # [id number] Dictation # [id number] tn
[2016-06-16] MEDS: Meropenem 1 GM in Sodium Chloride 0.9% 100 ML IVPB SCH ×3 (11:04→22:05)
[2016-06-16] MEDS: MOTILIUM 10 MG PO SCH (12:10)
[2016-06-16] MEDS: [UNRECOGNIZED DRUG - MIXTURE] PO SCH (12:11)
[2016-06-16] MEDS: Vancomycin 1gm in NS 250ml 250 ML IVPB SCH ×2 (12:21→22:51)
--- NOTE | 2016-06-16 15:50 | CON ---
DATE: 06/16/2016 REASON FOR CONSULTATION: Known hepatocellular carcinoma. The patient is a 51-year-old man with known hepatocellular carcinoma, cirrhosis of the liver, esophag eal varices, hepatic encephalopathy, who has been seeing Dr. Vale at [facility] an d has been receiving chemotherapy. He is unsure of what agent he is receiving. His last treatment w as approximately 2 weeks ago. He was at the clinic yesterday for a CBC check and was noted to have a temperature of 102. Therefore, was referred to the Emergency Room. He is currently undergoing work up for his fever to rule out sepsis. Consult now called for known hepatocellular carcinoma. He zaire es any prior fevers or chills. He has not noted any cough. No bleeding and no urinary symptoms. De nies any melena. No rectal bleeding, no nausea, no vomiting, no hematemesis. PAST MEDICAL HISTORY: As above, noted for stage III liver cancer, cirrhosis of the liver, esophageal varices, hepatic encephalopathy, portal vein thrombosis, kidney stones, diabetes mellitus, chronic a nemia. ALLERGIES: He has no known drug allergies. MEDICATIONS: Reviewed in the MAR. SOCIAL HISTORY: Negative for alcohol or tobacco abuse. FAMILY HISTORY: Also noncontributory. REVIEW OF SYSTEMS: As per the HPI. PHYSICAL EXAMINATION: VITAL SIGNS: Reveal a temperature of 100.7, pulse of 100, respiratory rate of 20, and a blood pressu re of 110/80. GENERAL: The patient is a middle-aged male, lying in bed, in no acute distress. HEAD AND NECK: Normocephalic, atraumatic. EYES: Pupils equal, round, reactive to light and accommodation. Extraocular muscles are intact. Th ere is no pallor. Icterus is noted. NECK: Supple with no adenopathy, no JVD, no thyromegaly. LUNGS: Clear to auscultation bilaterally with no rales or rhonchi. CARDIOVASCULAR: S1, S2 is heard. ABDOMEN: Positive bowel sounds, soft, nontender, nondistended, no organomegaly is palpated. EXTREMITIES: There is edema. LABORATORY DATA: Reveal a white count of 7.1, hemoglobin of 11.3, hematocrit 32.4, MCV of 91.5 and a platelet count of 159. Chemistries are within normal limits. His ammonia level is high at 35. LFT s are within normal limits. ASSESSMENT AND PLAN: Middle-aged male with known hepatocellular carcinoma being treated at [facility], unsure of what agent he is receiving. We will have to get medical records from [facility] to further classify stage of disease as well as chemotherapeutic agents that he has been receivi ng. Continue current workup for sepsis and treatment as per ID. Would recommend that patient return to his primary oncologist as he is already admits a treatment session. Hold off on any chemotherape utic agents at this point as sepsis is of the concern. Thank you for the consult. We will follow. Bhakti Gonzlaez MD cc: [id number] TT: 06/16/2016 15:49:54 Confirmation # [id number] Dictation # [id number]
--- NOTE | 2016-06-16 16:50 | CARD ---
APPROVED REPORT EKG Measurement Heart [id number] <Conclusion> Sinus tachycardia Otherwise normal ECG
[2016-06-16] MEDS: Sodium Chloride 0.9% 1,000 ML IV SCH (22:06)
--- NOTE | 2016-06-16 23:14 | CP.PCM.CON ---
History of Present Illness - History of Present Illness History of Present Illness: 51 year old male with PMH of Hepatitis C S/P treatment, with associated liver cirrhosis, hepatocellular cancer on chemotherapy (last done 3 weeks ago), portal vein thrombosis, esophageal varices, S/P port placement on the anterior chest wall, DM, obesity with BMI 35 was recently admitted for hepatic encephalopathy. He was sent for admission at [facility] after he was found to have fever during platelet transfusion at [facility]. The patient denies headache or dizziness, no sore throat, no nausea or vomiting, no chest pain, no cough, no bleeding, no dysuria, no diarrhea, no abdominal pain, no dysphagia. Infectious Diseases consult is requested to further evaluate and manage. Social history: no smoking, no alcohol abuse, no illicit drug use; patient was born in [place]; lives with and children Review of Systems - Review of Systems All systems: reviewed and no additional remarkable complaints except (as per HPI ) Past Patient History - Infectious Disease Hx of Infectious Diseases: None - Tetanus Immunizations Tetanus Immunization: Unknown - Past Medical History & Family History Past Medical History?: Yes - Past Social History Smoking Status: Never Smoked - CARDIAC Hx Cardiac Disorders: Yes Hx Hypertension: Yes - PULMONARY Hx Respiratory Disorders: Yes Other/Comment: portal vein thrombosis - NEUROLOGICAL Hx Neurological Disorder: No Hx Alzheimer's Disease: No HX Cerebrovascular Accident: No Hx Dementia: No Hx Dizziness: No Hx Meningitis: No Hx Migraine: No Hx Parkinson's Disease: No Hx Seizures: No Hx Transient Ischemic Attacks (TIA): No - HEENT Hx HEENT Problems: No Hx Blind: No Hx Cataracts: No Hx Deafness: No Hx Difficulty Chewing: No Hx Epistaxis: No Hx Glaucoma: No Hx Macular Degeneration: No - RENAL Hx Chronic Kidney Disease: Yes Hx Kidney Stones: Yes (X2) - ENDOCRINE/METABOLIC Hx Diabetes Mellitus Type 2: Yes - HEMATOLOGICAL/ONCOLOGICAL Hx Blood Disorders: No Hx AIDS: No Hx Anemia: No Hx Cancer: Yes Hx Chemotherapy: No Hx Cirrhosis: No Hx Human Immunodeficiency Virus (HIV): No Hx Metastesis: Yes Hx Shingles: No Hx Unexplained Bleeding: No - INTEGUMENTARY Hx Dermatological Problems: No Hx Basil Cell: No Hx Eczema: No Hx Melanoma: No Hx Psoriasis: No Hx Squamous Cell: No - MUSCULOSKELETAL/RHEUMATOLOGICAL Hx Falls: No - GASTROINTESTINAL Hx Gastrointestinal Disorders: Yes (UPPER GI BLEED ,CORRHOSIS OF LIVER) Hx Gall Bladder Disease: Yes (GALLSTONES) Hx Gastroesophageal Reflux: Yes Other/Comment: Esophageal varices - PSYCHIATRIC Hx Substance Use: No - SURGICAL HISTORY Other/Comment: Banding due to esophageal varices - ANESTHESIA Hx Anesthesia: Yes Hx Anesthesia Reactions: No Meds Allergies/Adverse Reactions: Allergies Allergy/AdvReac Type Severity Reaction Status Date / Time aspirin Allergy Mild VOMITING Verified 06/01/16 12:55 - Medications Medications: Current Medications Acetaminophen (Tylenol 325mg Tab) 650 mg PO Q6H PRN PRN Reason: Fever >100.4 F Sodium Chloride (Sodium Chloride 0.9%) 1,000 mls @ 100 mls/hr IV .Q10H MELY Vancomycin HCl (Vancomycin 1gm) 250 mls @ 167 mls/hr IVPB DAILY MELY PRN Reason: Protocol Meropenem 1 gm/ Sodium (Chloride) 100 mls @ 100 mls/hr IVPB Q8 MELY PRN Reason: Protocol Stop: 06/23/16 06:01 Vancomycin HCl (Vancomycin 1gm) 250 mls @ 167 mls/hr IVPB Q12H MELY PRN Reason: Protocol Stop: 06/23/16 06:01 Insulin Human Regular (Humulin R Low) 0 units SC ACHS MELY PRN Reason: Protocol Lactulose (Enulose) 20 gm PO QID MELY Lisinopril (Zestril) 2.5 mg PO DAILY MELY Non-Formulary Medication (Motilium) 10 mg PO DAILY MELY Non-Formulary Medication (Mv-Mn/Fa/Vit K/Lycop/Lut/Coq10 [Daily Multivitamin Capsule]) 1 cap PO DAILY [facility] Non-Formulary Medication (Vit B1 Mn/B2/B3/B5/B6/B12/C/Fa [B Complex With Vitamin C Tab]) 1 tab PO DAILY MELY Oseltamivir Phosphate (Tamiflu Cap) 75 mg PO BID MELY PRN Reason: Protocol Stop: 06/21/16 05:57 Pantoprazole Sodium (Protonix Inj) 40 mg IVP DAILY MELY Propranolol HCl (Inderal) 20 mg PO BID MELY Rifaximin (Xifaxan) 550 mg PO DAILY MELY PRN Reason: Protocol Sitagliptin Phosphate (Januvia) 100 mg PO DAILY MELY Spironolactone (Aldactone) 25 mg PO DAILY MELY Physical Exam - Constitutional Appears: Non-toxic, No Acute Distress - Head Exam Head Exam: NORMAL INSPECTION - ENT Exam ENT Exam: Mucous Membranes Moist - Neck Exam Neck exam: Negative for: Lymphadenopathy, Meningismus - Respiratory Exam Respiratory Exam: Decreased Breath Sounds - Cardiovascular Exam Cardiovascular Exam: +S1, +S2 - GI/Abdominal Exam GI & Abdominal Exam: Soft. absent: Tenderness Results - Vital Signs Recent Vital Signs: Last Vital Signs Temp 99.9 F H 06/16/16 02:22 Pulse 88 06/16/16 02:22 Resp 20 06/16/16 02:22 BP 137/74 06/16/16 02:22 Pulse Ox 98 06/16/16 00:26 - Labs Result Diagrams: 06/16/16 06:30 06/16/16 06:30 Labs: Laboratory Results - last 24 hr 06/16/16 06/16/16 02:14 02:30 pO2 53 VBG pH 7.44 H VBG pCO2 35.0 L VBG HCO3 23.8 VBG Total CO2 24.9 VBG O2 Sat (Calc) 92.7 H VBG Base Excess 0.1 VBG Potassium 4.2 Sodium 134.0 Chloride 106.0 Glucose 136 H Lactate 1.8 FiO2 21.0 POC Glucose (mg/dL) 131 H Venous Blood Potassium 4.2 Assessment & Plan - Assessment and Plan (Free Text) Plan: Assessment Systemic Inflammatory Response Syndrome, R/O sepsis source to be determined Hepatitis C S/P treatment, with associated liver cirrhosis hepatocellular cancer on chemotherapy (last done 3 weeks ago) portal vein thrombosis esophageal varices S/P port placement on the anterior chest wall DM obesity with BMI 35 Plan Started patient on Vancomycin and Meropenem pending blood cx, urine cx, PCT Will monitor fever curve
[2016-06-17 03:22] VITALS: TEMP 98.9
[2016-06-17] MEDS: Sodium Chloride 0.9% 1,000 ML IV SCH (05:51)
[2016-06-17] MEDS: Meropenem 1g/NS 100mL IVPB 100 ML IVPB SCH ×2 (05:51→14:24)
[2016-06-17 07:49] VITALS: BP 113/69; PULSE 83; RESP 20; O2SAT 95
[2016-06-17] MEDS: Insulin Reg-LOW-Coverage SC SCH ×2 (08:30→12:46)
[2016-06-17] MEDS: [UNRECOGNIZED DRUG - MIXTURE] PO SCH (10:14)
[2016-06-17] MEDS: MOTILIUM 10 MG PO SCH (10:14)
[2016-06-17] MEDS: Vancomycin 1gm in NS 250ml 250 ML IVPB SCH (11:50)
--- NOTE | 2016-06-17 12:00 | CP.PCM.DIS ---
<Gelacio Hdz - Last Filed: 06/17/16 15:11> Provider - Provider Date of Admission: 06/15/16 23:23 Attending physician: Kitty Cabrera MD Primary care physician: Alexa Andrade MD Consults: ID: Layo GI: Buffy Heme/Onc: Lisa Time Spent in preparation of Discharge (in minutes): 45 Hospital Course - Lab Results Lab Results: Most Recent Lab Values WBC 7.1 10^3/ul (4.5-11.0) D 06/16/16 06:30 RBC 3.54 10^6/uL (3.5-6.1) 06/16/16 06:30 Hgb 11.3 gm/dL (14.0-18.0) L 06/16/16 06:30 Hct 32.4 % (42.0-52.0) L 06/16/16 06:30 MCV 91.5 fL (80.0-105.0) 06/16/16 06:30 MCH 31.9 pg (25.0-35.0) 06/16/16 06:30 MCHC 34.9 g/dl (31.0-37.0) 06/16/16 06:30 RDW 17.2 % (11.5-14.5) H 06/16/16 06:30 Plt Count 159 10^3/uL (120.0-450.0) 06/16/16 06:30 MPV 10.6 fl (7.0-11.0) 06/16/16 06:30 Gran % 79.3 % (50.0-68.0) H 06/16/16 06:30 Lymph % (Auto) 10.4 % (22.0-35.0) L 06/16/16 06:30 Mccormick % (Auto) 9.4 % (1.0-6.0) H 06/16/16 06:30 Eos % (Auto) 0.6 % (1.5-5.0) L 06/16/16 06:30 Baso % (Auto) 0.3 % (0.0-3.0) 06/16/16 06:30 Gran # 5.66 (1.4-6.5) 06/16/16 06:30 Lymph # 0.7 (1.2-3.4) L 06/16/16 06:30 Mccormick # 0.7 (0.1-0.6) H 06/16/16 06:30 Eos # 0.0 (0.0-0.7) 06/16/16 06:30 Baso # 0.02 K/mm3 (0.0-2.0) 06/16/16 06:30 pO2 53 mm/Hg (30-55) 06/16/16 02:30 VBG pH 7.44 (7.32-7.43) H 06/16/16 02:30 VBG pCO2 35.0 (40-60) L 06/16/16 02:30 VBG HCO3 23.8 mmol/l (21-28) 06/16/16 02:30 VBG Total CO2 24.9 mmol.L (22-28) 06/16/16 02:30 VBG O2 Sat (Calc) 92.7 % (40-65) H 06/16/16 02:30 VBG Base Excess 0.1 mmol/L (0.0-2.0) 06/16/16 02:30 VBG Potassium 4.2 mmol/L (3.6-5.2) 06/16/16 02:30 Sodium 134.0 mmol/L (132-148) 06/16/16 02:30 Chloride 106.0 mmol/L (98-107) 06/16/16 02:30 Glucose 136 mg/dl (75-110) H 06/16/16 02:30 Lactate 1.8 mmol/L (0.7-2.1) 06/16/16 02:30 FiO2 21.0 % 06/16/16 02:30 Sodium 133 mmol/L (132-148) 06/16/16 06:30 Potassium 4.3 mmol/L (3.6-5.0) 06/16/16 06:30 Chloride 103 mmol/L (95-110) 06/16/16 06:30 Carbon Dioxide 23 mmol/L (21-33) 06/16/16 06:30 Anion Gap 11 (10-20) 06/16/16 06:30 BUN 12 mg/dL (7-21) 06/16/16 06:30 Creatinine 0.7 mg/dL (0.5-1.4) 06/16/16 06:30 Est GFR ( Amer) > 60 06/16/16 06:30 Est GFR (Non-Af Amer) > 60 06/16/16 06:30 POC Glucose (mg/dL) 178 mg/dL (65-110) H 06/17/16 11:07 Random Glucose 179 mg/dL (70-110) H 06/16/16 06:30 Serum Osmolality 284 mosm/kg (271-296) 06/16/16 06:30 Lactic Acid 2.1 mmol/L (0.7-2.1) 06/16/16 07:00 Uric Acid 3.1 mg/dL (3.5-8.5) L 06/16/16 06:30 Calcium 8.2 mg/dL (8.4-10.5) L 06/16/16 06:30 Total Bilirubin 1.3 mg/dL (0.2-1.3) 06/16/16 06:30 AST 43 U/L (15-59) 06/16/16 06:30 ALT 41 U/L (7-56) 06/16/16 06:30 Alkaline Phosphatase 96 U/L (38-133) 06/16/16 06:30 Ammonia 35 umol/L (9-33) H 06/16/16 07:00 Total Protein 6.7 g/dL (5.8-8.3) 06/16/16 06:30 Albumin 2.6 g/dL (3.0-4.8) L 06/16/16 06:30 Globulin 4.0 gm/dL 06/16/16 06:30 Albumin/Globulin Ratio 0.7 (1.1-1.8) L 06/16/16 06:30 Lipase 150 U/L (23-300) 06/15/16 20:16 TSH 3rd Generation 1.28 mIU/mL (0.46-4.68) 06/16/16 06:30 Venous Blood Potassium 4.2 mmol/L (3.6-5.2) 06/16/16 02:30 Urine Osmolality 796 mosm/kg (50-645) H 06/16/16 13:39 Ur Random Creatinine 408 mg/dL 06/16/16 13:39 Ur Random Sodium 16 meq/L 06/16/16 13:39 RPR Nonreactive (NONREACTIVE) 06/16/16 06:30 HIV 1&2 Antibody Screen Negative (NEGATIVE) 06/16/16 06:30 Influenza Typ A,B (EIA) Negative for flu a/b (NEGATIVE) 06/15/16 23:14 - Hospital Course Hospital Course: Upon Admission: 51yo M with PMHx of HCV s/p treatment, HCC on Chemo, Portal Vein Thrombosis, Esophageal Varices here for evaluation of fever. Patient was getting a transfusion of platelets at [facility], when he was found to have a fever of 103F. He also states that his was recently ill with flu-like symptoms. Patient was started on Tamiflu and Emperic Abx. Fever trend improved and patient continued to remain afebrile. GI consult was obtained, and out-patient follow up with primary GI was recommended. Heme/Onc consult was obtained and no new recommendations were made. ID consult was obtained and it was deemed that the patient may be discharged on Tamiflu for 3 more days and Augmentin for 4 more days. Plan was discussed extensively with patient and family. Patient agrees with plan. Patient would like to be discharged home today. 1. Fever; Augmentin and Tamiflu 2. Hx of Hepatic Encephalopathy; Ammonia better compared to previous. Continue home regimen of lactulose and xifaxin 3. Hx of HCC; f/u with outpatient GI, Heme/Onc 4. Hx of DM 5. hx of HTN Upon Discharge: Patient is cleared for discharge as per Dr. Cabrera 1. Follow up with your Primary Care physician within 4 days 2. Follow up with your Liver specialist 3. follow up with your Oncologist 4. Take Antibiotics as directed, as prescribed 5. Resume all home medications as directed 6. Return to the ER with any concerning symptoms. New Prescriptions: Augmentin 875mg PO BID #8/0 Oseltamivir 75mg PO BID #6/0 Discharge Exam - Head Exam Head Exam: ATRAUMATIC, NORMAL INSPECTION, NORMOCEPHALIC - Eye Exam Eye Exam: EOMI, Normal appearance, PERRL. absent: Scleral icterus Pupil Exam: PERRL - Respiratory Exam Respiratory Exam: Clear to PA & Lateral, NORMAL BREATHING PATTERN. absent: Respiratory Distress - Cardiovascular Exam Cardiovascular Exam: REGULAR RHYTHM, +S1, +S2. absent: JVD - GI/Abdominal Exam GI & Abdominal Exam: Normal Bowel Sounds. absent: Soft - Back Exam Back exam: NORMAL INSPECTION - Neurological Exam Neurological exam: Alert, Oriented x3 - Psychiatric Exam Psychiatric exam: Normal Affect, Normal Mood - Skin Skin Exam: Dry, Intact, Normal Color, Warm Discharge Plan - Discharge Medications Prescriptions: Amoxicillin/Clavulanate [Augmentin 875 MG-125 MG] 1 tab PO BID #8 tab Oseltamivir [Tamiflu Cap] 75 mg PO BID #6 cap - Follow Up Plan Condition: GOOD Disposition: HOME/ ROUTINE Instructions: Influenza Virus Vaccine (By injection), Amoxicillin/Clavulanate Potassium (By mouth), Oseltamivir (By mouth), Sitagliptin (By mouth), Heart Healthy Diet (DC), Fever in Adults (GEN), Diabetes Mellitus Type 2 in Adults (DC ), Influenza (DC) Additional Instructions: Patient is cleared for discharge as per Dr. Cabrera 1. Follow up with your Primary Care physician within 4 days 2. Follow up with your Liver specialist 3. follow up with you Oncologist 4. Take Antibiotics as directed, as prescribed 5. Resume all home medications as directed 6. Return to the ER with any concerning symptoms. New Prescriptions: Augmentin 875mg PO BID #8/0 Oseltamivir 75mg PO BID #6/0 Referrals: Alexa Andrade MD [Primary Care Provider] - <Kitty Cabrera MD - Last Filed: 06/17/16 15:30> Provider - Provider Date of Admission: 06/15/16 23:23 Attending physician: Kitty Cabrera MD Primary care physician: Alexa Andrade MD Hospital Course - Lab Results Lab Results: Most Recent Lab Values WBC 7.1 10^3/ul (4.5-11.0) D 06/16/16 06:30 RBC 3.54 10^6/uL (3.5-6.1) 06/16/16 06:30 Hgb 11.3 gm/dL (14.0-18.0) L 06/16/16 06:30 Hct 32.4 % (42.0-52.0) L 06/16/16 06:30 MCV 91.5 fL (80.0-105.0) 06/16/16 06:30 MCH 31.9 pg (25.0-35.0) 06/16/16 06:30 MCHC 34.9 g/dl (31.0-37.0) 06/16/16 06:30 RDW 17.2 % (11.5-14.5) H 06/16/16 06:30 Plt Count 159 10^3/uL (120.0-450.0) 06/16/16 06:30 MPV 10.6 fl (7.0-11.0) 06/16/16 06:30 Gran % 79.3 % (50.0-68.0) H 06/16/16 06:30 Lymph % (Auto) 10.4 % (22.0-35.0) L 06/16/16 06:30 Mccormick % (Auto) 9.4 % (1.0-6.0) H 06/16/16 06:30 Eos % (Auto) 0.6 % (1.5-5.0) L 06/16/16 06:30 Baso % (Auto) 0.3 % (0.0-3.0) 06/16/16 06:30 Gran # 5.66 (1.4-6.5) 06/16/16 06:30 Lymph # 0.7 (1.2-3.4) L 06/16/16 06:30 Mccormick # 0.7 (0.1-0.6) H 06/16/16 06:30 Eos # 0.0 (0.0-0.7) 06/16/16 06:30 Baso # 0.02 K/mm3 (0.0-2.0) 06/16/16 06:30 pO2 53 mm/Hg (30-55) 06/16/16 02:30 VBG pH 7.44 (7.32-7.43) H 06/16/16 02:30 VBG pCO2 35.0 (40-60) L 06/16/16 02:30 VBG HCO3 23.8 mmol/l (21-28) 06/16/16 02:30 VBG Total CO2 24.9 mmol.L (22-28) 06/16/16 02:30 VBG O2 Sat (Calc) 92.7 % (40-65) H 06/16/16 02:30 VBG Base Excess 0.1 mmol/L (0.0-2.0) 06/16/16 02:30 VBG Potassium 4.2 mmol/L (3.6-5.2) 06/16/16 02:30 Sodium 134.0 mmol/L (132-148) 06/16/16 02:30 Chloride 106.0 mmol/L (98-107) 06/16/16 02:30 Glucose 136 mg/dl (75-110) H 06/16/16 02:30 Lactate 1.8 mmol/L (0.7-2.1) 06/16/16 02:30 FiO2 21.0 % 06/16/16 02:30 Sodium 133 mmol/L (132-148) 06/16/16 06:30 Potassium 4.3 mmol/L (3.6-5.0) 06/16/16 06:30 Chloride 103 mmol/L (95-110) 06/16/16 06:30 Carbon Dioxide 23 mmol/L (21-33) 06/16/16 06:30 Anion Gap 11 (10-20) 06/16/16 06:30 BUN 12 mg/dL (7-21) 06/16/16 06:30 Creatinine 0.7 mg/dL (0.5-1.4) 06/16/16 06:30 Est GFR ( Amer) > 60 06/16/16 06:30 Est GFR (Non-Af Amer) > 60 06/16/16 06:30 POC Glucose (mg/dL) 178 mg/dL (65-110) H 06/17/16 11:07 Random Glucose 179 mg/dL (70-110) H 06/16/16 06:30 Serum Osmolality 284 mosm/kg (271-296) 06/16/16 06:30 Lactic Acid 2.1 mmol/L (0.7-2.1) 06/16/16 07:00 Uric Acid 3.1 mg/dL (3.5-8.5) L 06/16/16 06:30 Calcium 8.2 mg/dL (8.4-10.5) L 06/16/16 06:30 Total Bilirubin 1.3 mg/dL (0.2-1.3) 06/16/16 06:30 AST 43 U/L (15-59) 06/16/16 06:30 ALT 41 U/L (7-56) 06/16/16 06:30 Alkaline Phosphatase 96 U/L (38-133) 06/16/16 06:30 Ammonia 35 umol/L (9-33) H 06/16/16 07:00 Total Protein 6.7 g/dL (5.8-8.3) 06/16/16 06:30 Albumin 2.6 g/dL (3.0-4.8) L 06/16/16 06:30 Globulin 4.0 gm/dL 06/16/16 06:30 Albumin/Globulin Ratio 0.7 (1.1-1.8) L 06/16/16 06:30 Lipase 150 U/L (23-300) 06/15/16 20:16 TSH 3rd Generation 1.28 mIU/mL (0.46-4.68) 06/16/16 06:30 Venous Blood Potassium 4.2 mmol/L (3.6-5.2) 06/16/16 02:30 Urine Osmolality 796 mosm/kg (50-645) H 06/16/16 13:39 Ur Random Creatinine 408 mg/dL 06/16/16 13:39 Ur Random Sodium 16 meq/L 06/16/16 13:39 RPR Nonreactive (NONREACTIVE) 06/16/16 06:30 HIV 1&2 Antibody Screen Negative (NEGATIVE) 06/16/16 06:30 Influenza Typ A,B (EIA) Negative for flu a/b (NEGATIVE) 06/15/16 23:14 Attending/Attestation - Attestation I have personally seen and examined this patient.: Yes I have fully participated in the care of the patient.: Yes I have reviewed all pertinent clinical information, including history, physical exam and plan: Yes Notes (Text): Patient was seen and examined with medical assistant per diem .Agreed with resident assessment and plan. 51 year old male with PMH of Hepatitis C S/P treatment, with associated liver cirrhosis, hepatocellular cancer on chemotherapy (last done 3 weeks ago), portal vein thrombosis, esophageal varices, S/P port placement on the anterior chest wall, DM, obesity with BMI 35 was recently admitted for hepatic encephalopathy. He was sent for admission at [facility] after he was found to have fever during platelet transfusion at a [facility], had sick contact at home, there was no source of infection.Patient was treated with broad spectrum antibiotics, influenza screen was negative.Patient cultures remain negative.Patient fever resolve quickly.He is afebrile since 24 hour and is feeling at his base line.His symptoms were likely due to viral syndrome, patient does not want to stay in the hospital, case was discussed with ID and patient will be discharged home on oral Augmentin and Tamiflu. Management plan was discussed in detail with patient Education was provided.
--- NOTE | 2016-06-17 15:57 | CP.PCM.PN ---
Subjective - Date & Time of Evaluation Date of Evaluation: 06/17/16 Time of Evaluation: 10:10 - Subjective Subjective: Comfortable in bed, no fevers overnight, no nausea, no vomiting, no SOB, no cough, no dysuria. Objective - Vital Signs/Intake and Output Vital Signs (last 24 hours): Temp Pulse Resp BP Pulse Ox 98.9 F 83 20 113/69 95 06/17/16 07:48 06/17/16 10:12 06/17/16 07:48 06/17/16 10:12 06/17/16 07:48 Intake and Output: 06/17/16 06/17/16 06:59 18:59 Intake Total 3450 620 Balance 3450 620 - Medications Medications: Current Medications Acetaminophen (Tylenol 325mg Tab) 650 mg PO Q6H PRN PRN Reason: Fever >100.4 F Sodium Chloride (Sodium Chloride 0.9%) 1,000 mls @ 100 mls/hr IV .Q10H [facility] Last Admin: 06/17/16 05:51 Dose: 100 mls/hr Vancomycin HCl (Vancomycin 1gm) 250 mls @ 167 mls/hr IVPB Q12H [facility] PRN Reason: Protocol Stop: 06/23/16 11:01 Last Admin: 06/17/16 11:50 Dose: 167 mls/hr Meropenem 1g/NS 100mL IVPB (Meropenem 1g/Ns 100ml Ivpb) 100 mls @ 100 mls/hr IVPB Q8 [facility] PRN Reason: Protocol Stop: 06/23/16 06:01 Last Admin: 06/17/16 14:24 Dose: 100 mls/hr Insulin Human Regular (Humulin R Low) 0 units SC ACHS [facility] PRN Reason: Protocol Last Admin: 06/17/16 12:46 Dose: 1 units Lactulose (Enulose) 20 gm PO QID [facility] Last Admin: 06/17/16 14:24 Dose: 20 gm Lisinopril (Zestril) 2.5 mg PO DAILY [facility] Last Admin: 06/17/16 10:12 Dose: 2.5 mg Non-Formulary Medication (Motilium) 10 mg PO DAILY [facility] Last Admin: 06/17/16 10:14 Dose: Not Given Non-Formulary Medication (Mv-Mn/Fa/Vit K/Lycop/Lut/Coq10 [Daily Multivitamin Capsule]) 1 cap PO DAILY [facility] Last Admin: 06/17/16 10:14 Dose: Not Given Non-Formulary Medication (Vit B1 Mn/B2/B3/B5/B6/B12/C/Fa [B Complex With Vitamin C Tab]) 1 tab PO DAILY [facility] Last Admin: 06/17/16 10:15 Dose: Not Given Oseltamivir Phosphate (Tamiflu Cap) 75 mg PO BID [facility] PRN Reason: Protocol Stop: 06/21/16 05:57 Last Admin: 06/17/16 10:12 Dose: 75 mg Pantoprazole Sodium (Protonix Inj) 40 mg IVP DAILY [facility] Last Admin: 06/17/16 10:12 Dose: 40 mg Propranolol HCl (Inderal) 20 mg PO BID [facility] Last Admin: 06/17/16 10:11 Dose: 20 mg Rifaximin (Xifaxan) 550 mg PO DAILY [facility] PRN Reason: Protocol Last Admin: 06/17/16 10:11 Dose: 550 mg Sitagliptin Phosphate (Januvia) 100 mg PO DAILY [facility] Last Admin: 06/17/16 10:12 Dose: 100 mg Spironolactone (Aldactone) 25 mg PO DAILY [facility] Last Admin: 06/17/16 10:11 Dose: 25 mg - Labs Labs: 06/16/16 06:30 06/16/16 06:30 - Constitutional Appears: Non-toxic, No Acute Distress - Head Exam Head Exam: NORMAL INSPECTION - Neck Exam Neck Exam: absent: Lymphadenopathy, Meningismus - Respiratory Exam Respiratory Exam: Decreased Breath Sounds - Cardiovascular Exam Cardiovascular Exam: +S1, +S2 Additional comments: right anterior chest wall port site clean and intact - GI/Abdominal Exam GI & Abdominal Exam: Soft. absent: Tenderness Assessment and Plan - Assessment and Plan (Free Text) Plan: Assessment Systemic Inflammatory Response Syndrome, so far no source of sepsis identified R /O Influenza Hepatitis C S/P treatment, with associated liver cirrhosis hepatocellular cancer on chemotherapy (last done 3 weeks ago) portal vein thrombosis esophageal varices S/P port placement on the anterior chest wall DM obesity with BMI 35 Plan on Vancomycin and Meropenem day 2; blood cx are negative; when ready for discharge, can be switched PO Augmentin for 5-7 days and to complete the course of Tamiflu for a 5 day course - discussed with Dr. Cabrera - adviced patient that he needs to follow up with his Primary care doctor to make sure that he is recovered - patient agrees and understands
== END 2016-06-17 19:14 | disposition home or self-care (01) | DRG 714 ==
LOC: ED 19:33 → ERH 23:23 → 5RSO 06-16 01:46
PROVIDERS: ADMIT Internal Medicine; ATTEND Internal Medicine
DX: R50.9 Fever, unspecified (principal); B20 Human immunodeficiency virus [HIV] disease; E87.1 Hypo-osmolality and hyponatremia; I81 Portal vein thrombosis; C22.0 Liver cell carcinoma; R65.10 Systemic inflammatory response syndrome (SIRS) of non-infectious origin without acute organ dysfunction; I85.00 Esophageal varices without bleeding; E11.22 Type 2 diabetes mellitus with diabetic chronic kidney disease; K72.90 Hepatic failure, unspecified without coma; N18.9 Chronic kidney disease, unspecified; K74.60 Unspecified cirrhosis of liver; I12.9 Hypertensive chronic kidney disease with stage 1 through stage 4 chronic kidney disease, or unspecified chronic kidney disease; E66.9 Obesity, unspecified; Z68.35 Body mass index [BMI] 35.0-35.9, adult; K21.9 Gastro-esophageal reflux disease without esophagitis; Z79.899 Other long term (current) drug therapy; Z83.3 Family history of diabetes mellitus; Z87.442 Personal history of urinary calculi; Z92.3 Personal history of irradiation; D64.9 Anemia, unspecified; Z87.19 Personal history of other diseases of the digestive system; Z88.6 Allergy status to analgesic agent

== ENCOUNTER 2017-03-27 19:00 | Inpatient (IN) | payer MEDICAID ==
[2017-03-27 20:15] VITALS: BMI 32.3
--- NOTE | 2017-03-27 20:49 | ED PDOC ---
Arrival/HPI <Idania Vidal - Last Filed: 03/27/17 20:45> - General Historian: Patient - History of Present Illness Time/Duration: 24 hours Symptom Onset: Gradual Symptom Course: Unchanged Activities at Onset: Light <Carter Turk - Last Filed: 03/28/17 05:22> - General Chief Complaint: Medical Clearance Time Seen by Provider: 03/27/17 20:25 - History of Present Illness Narrative History of Present Illness (Text): 03/27/17 20:34 52 year old male, with past medical history of stage III liver cancer, presents to the Emergency Department for medical clearance secondary to infection in fluid from paracentesis yesterday. Patient informs having paracentesis done in another institution yesterday and was informed today that the fluid collected was infected and the patient should visit the Emergency Department for medical evaluation. Patient denies any fever, chills, nausea, vomiting, diarrhea, chest pain, shortness of breath, abdominal pain or any other complaints. (Carter Turk) Past Medical History - Infectious Disease Hx of Infectious Diseases: None - Tetanus Immunization Tetanus Immunization: Unknown - Cardiac Hx Cardiac Disorders: Yes Hx Hypertension: Yes - Pulmonary Hx Respiratory Disorders: Yes Other/Comment: portal vein thrombosis - Neurological Hx Neurological Disorder: No Hx Alzheimer's Disease: No HX Cerebrovascular Accident: No Hx Dementia: No Hx Dizziness: No Hx Meningitis: No Hx Migraine: No Hx Parkinson's Disease: No Hx Seizures: No Hx Transient Ischemic Attacks (TIA): No - HEENT Hx HEENT Disorder: No Hx Blind: No Hx Cataracts: No Hx Deafness: No Hx Difficulty Chewing: No Hx Epistaxis: No Hx Glaucoma: No Hx Macular Degeneration: No - Renal Hx Renal Disorder: Yes Hx Kidney Stones: Yes (X2) - Endocrine/Metabolic Hx Diabetes Mellitus Type 2: Yes - Hematological/Oncological Hx Blood Disorders: Yes Hx Anemia: Yes (WEEKLY IV INFUSION AT [facility]) Hx Cancer: Yes (LIVER CA -COMPLETED RADIATION) Hx Chemotherapy: Yes Hx Hepatitis C: Yes Other/Comment: portal vein thrombosis - Integumentary Hx Dermatological Disorder: No Hx Basal Cell Carcinoma: No Hx Eczema: No Hx Melanoma: No Hx Psoriasis: No Hx Squamous Cell Carcinoma: No - Musculoskeletal/Rheumatological Hx Falls: No - Gastrointestinal Hx Gastrointestinal Disorders: Yes (UPPER GI BLEED ,CORRHOSIS OF LIVER) Hx Gall Bladder Disease: Yes (GALLSTONES) Hx Gastroesophageal Reflux: Yes Other/Comment: Esophageal varices - Psychiatric Hx Substance Use: No - Surgical History Other/Comment: Banding due to esophageal varices - Anesthesia Hx Anesthesia: Yes Hx Anesthesia Reactions: No <Idania Vidal - Last Filed: 03/27/17 20:45> - Provider Review Nursing Documentation Reviewed: Yes <Carter Turk - Last Filed: 03/28/17 05:22> Family/Social History Smoking Status: Never Smoked Hx Alcohol Use: No Hx Substance Use: No <Idania Vidal - Last Filed: 03/27/17 20:45> - Physician Review Nursing Documentation Reviewed: Yes Family/Social History: No Known Family HX <Carter Turk - Last Filed: 03/28/17 05:22> Allergies/Home Meds <Idania Vidal - Last Filed: 03/27/17 20:45> <Carter Turk - Last Filed: 03/28/17 05:22> Allergies/Adverse Reactions: Allergies aspirin Allergy (Mild, Verified 06/01/16 12:55) VOMITING Home Medications: Home Meds Medication Instructions Recorded Confirmed Omeprazole 40 mg DAILY 05/31/16 03/27/17 SITagliptin [Januvia] 100 mg PO DAILY 05/31/16 03/27/17 Motilium 10 mg PO DAILY 06/01/16 03/27/17 Mv-Min/Folic/Vit K/Lycop/Coq10 1 cap PO DAILY 06/01/16 03/27/17 [Daily Multivitamin Capsule] Propranolol [Inderal] 20 mg PO BID 06/01/16 03/27/17 Vit B1 Mn/B2/B3/B5/B6/B12/C/FA [B 1 tab PO DAILY 06/01/16 03/27/17 Complex with Vitamin C Tab] Spironolactone [Aldactone] 100 mg PO DAILY 06/15/16 03/27/17 Furosemide [Lasix] 80 mg PO DAILY 03/27/17 03/27/17 Lactulose [Enulose] 20 gm PO TID 03/27/17 03/27/17 Levothyroxine Sodium [Levo-T] 150 mcg PO DAILY 03/27/17 03/27/17 oxyCODONE [oxyCODONE Immediate 5 mg PO Q6H PRN 03/27/17 03/27/17 Release Tab] rifAXIMin [Xifaxan] 550 mg PO BID 03/27/17 03/27/17 Review of Systems - Physician Review All systems were reviewed & negative as marked: Yes - Review of Systems Constitutional: Normal. absent: Fevers Eyes: Normal ENT: Normal Respiratory: Normal. absent: SOB Cardiovascular: Normal. absent: Chest Pain Gastrointestinal: Normal. absent: Abdominal Pain, Diarrhea, Nausea, Vomiting Genitourinary Male: Normal Musculoskeletal: Normal Skin: Normal Neurological: Normal Endocrine: Normal Hemo/Lymphatic: Normal Psychiatric: Normal <Carter Turk Filed: 03/28/17 05:22> Physical Exam Vital Signs Reviewed: Yes Temperature: Afebrile Blood Pressure: Normal Pulse: Regular Respiratory Rate: Normal Appearance: Positive for: Well-Appearing, Non-Toxic, Comfortable Pain Distress: None Mental Status: Positive for: Alert and Oriented X 3 - Systems Exam Head: Present: Atraumatic, Normocephalic Pupils: Present: PERRL Extroacular Muscles: Present: EOMI Conjunctiva: Present: Normal Mouth: Present: Moist Mucous Membranes Neck: Present: Normal Range of Motion Respiratory/Chest: Present: Clear to Auscultation, Good Air Exchange. No: Respiratory Distress, Accessory Muscle Use Cardiovascular: Present: Regular Rate and Rhythm, Normal S1, S2. No: Murmurs Abdomen: Present: Distention, Normal Bowel Sounds. No: Tenderness, Peritoneal Signs Back: Present: Normal Inspection Upper Extremity: Present: Normal Inspection. No: Cyanosis, Edema Lower Extremity: Present: Normal Inspection. No: Edema Neurological: Present: GCS=15, CN II-XII Intact, Speech Normal Skin: Present: Warm, Dry, Normal Color. No: Rashes Psychiatric: Present: Alert, Oriented x 3, Normal Insight, Normal Concentration <Carter Turk Filed: 03/28/17 05:22> Vital Signs Temp Pulse Resp BP Pulse Ox 03/28/17 01:00 78 18 93/58 L 100 03/27/17 23:30 80 18 110/70 98 03/27/17 22:30 79 18 102/66 98 03/27/17 21:30 77 16 110/70 99 03/27/17 20:13 98.3 F 77 18 106/71 97 Medical Decision Making <Idania Vidal - Last Filed: 03/27/17 20:45> <Carter Turk - Last Filed: 03/28/17 05:22> ED Course and Treatment: 03/27/17 20:34 Impression: 52 year old male presents to the Emergency Department for infection in fluid from paracentesis. Plan: -- VBG -- EKG -- Labs -- Chest X-ray -- Blood Cullture -- Urine Culture -- Urinalysis -- Piperacillin -- oxycodone -- metronidazole -- IV Fluids -- Reassess and disposition Progress Notes: case d/w dr martinez accepts case pt was not seen by by pa only myself (Carter Turk) - Lab Interpretations Lab Results: 03/27/17 20:35 03/27/17 20:35 Lab Results 03/27/17 20:35: Sodium 130 L, Chloride 98, Potassium 4.8, Carbon Dioxide 22, Anion Gap 15, BUN 26 H, Creatinine 1.2, Est GFR ( Amer) > 60, Est GFR ( Non-Af Amer) > 60, Random Glucose 136 H, Calcium 9.2, Phosphorus 3.1, Magnesium 1.8, Total Bilirubin 2.8 H, AST 157 H, ALT 133 H, Alkaline Phosphatase 279 H, Total Protein 8.4 H, Albumin 3.6, Globulin 4.7, Albumin/Globulin Ratio 0.8 L 03/27/17 20:35: pO2 129 H, VBG pH 7.37, VBG pCO2 42.0, VBG HCO3 24.3, VBG Total CO2 25.6, VBG O2 Sat (Calc) 99.5 H, VBG Base Excess -1.1 L, VBG Potassium 5.1, Sodium 130.0 L, Chloride 100.0, Glucose 136 H, Lactate 2.2 H, FiO2 21.0, Venous Blood Potassium 5.1 03/27/17 20:35: PT 17.4 H, INR 1.51 H, APTT 36.9 H 03/27/17 20:35: WBC 5.2 D, RBC 3.31 L, Hgb 11.3 L, Hct 32.5 L, MCV 98.2, MCH 34.1, MCHC 34.8, RDW 16.6 H, Plt Count 177, MPV 11.5 H, Gran % 67.4, Lymph % ( Auto) 19.0 L, [place] % (Auto) 10.3 H, Eos % (Auto) 3.1, Baso % (Auto) 0.2, Gran # 3.47, Lymph # 1.0 L, [place] # 0.5, Eos # 0.2, Baso # 0.01 - RAD Interpretation Radiology Orders: 03/27/17 20:34 CHEST PORTABLE [RAD] Stat - EKG Interpretation EKG Interpretation (Text): 03/28/17 04:55 nsr rate 76 nssts changes (Carter Turk) - Medication Orders Current Medication Orders: Furosemide (Lasix) 80 mg IVP DAILY MELY Heparin Sodium (Porcine) (Heparin) 5,000 units SC Q8 MELY PRN Reason: Protocol Lactated Ringer's (Lactated Ringer's) 1,000 mls @ 80 mls/hr IV .[id number] MELY Last Admin: 03/27/17 22:05 Dose: 80 mls/hr eMAR Start Stop Document 03/27/17 22:05 JOL (Rec: 03/27/17 22:27 JOL [id number]) Intravenous Solution Start Date 03/27/17 Start Time 22:05 Metronidazole (Flagyl) 500 mg in 100 mls @ 100 mls/hr IVPB Q8 MELY PRN Reason: Protocol Piperacillin Sod/Tazobactam Sod (Zosyn 3.375 In Ns 100ml) 100 mls @ 200 mls/hr IVPB Q6 MELY PRN Reason: Protocol Stop: 03/28/17 12:29 Lactulose (Enulose) 20 gm PO TID MELY Levothyroxine Sodium (Synthroid) 150 mcg PO ACB MELY Non-Formulary Medication (Vit B1 Mn/B2/B3/B5/B6/B12/C/Fa [B Complex With Vitamin C Tab]) 1 tab PO DAILY MELY Oxycodone/Acetaminophen (Percocet 5/325 Mg Tab) 1 tab PO Q6H PRN PRN Reason: Pain, moderate (4-7) Stop: 03/30/17 23:36 Last Admin: 03/28/17 00:10 Dose: 1 tab MAR Pain Assessment Document 03/28/17 00:10 JOL (Rec: 03/28/17 00:17 [id number] Pain Reassessment Is this a pain reassessment? No Sleep Is patient sleeping during reassessment? No Presence of Pain Presence of Pain Yes Pain Scale Used Pain Scale Used Numeric Location Pain Location Body Site Abdomen Description Intensity of Pain at present 8 Pantoprazole Sodium (Protonix Inj) 40 mg IVP Q12 MELY Propranolol HCl (Inderal) 20 mg PO BID MELY Rifaximin (Xifaxan) 550 mg PO BID MELY PRN Reason: Protocol Spironolactone (Aldactone) 100 mg PO DAILY MELY Discontinued Medications Metronidazole (Flagyl) 500 mg in 100 mls @ 100 mls/hr IVPB STAT STA PRN Reason: Protocol Stop: 03/27/17 22:32 Last Admin: 03/27/17 23:00 Dose: 100 mls/hr eMAR Start Stop Document 03/27/17 23:00 JO (Rec[facility]27[facility]17 [id number]ven[facility] Solution Start Date 03/27/17 Start Time 23:00 End Date 03/28/17 End time 00:00 Total Infusion Time 60 Piperacillin Sod/Tazobactam Sod (Zosyn 3.375 In Ns 100ml) 100 mls @ 200 mls/hr IVPB STAT STA PRN Reason: Protocol Stop: 03/27/17 22:02 Last Admin: 03/27/17 22:05 Dose: 200 mls/hr eMAR Start Stop Document 03/27/17 22:05 JO (Rec: 03/27/17 22:27 [id number] Intravenous Solution Start Date 03/27/17 Start Time 22:05 End Date 03/27/17 End time 22:35 Total Infusion Time 30 <Idania Vidal - Last Filed: 03/27/17 20:45> - Scribe Statement The provider has reviewed the documentation as recorded by the Scribe <Carter Turk - Last Filed: 03/28/17 05:22> - Scribe Statement Jamir Jim. All medical record entries made by the Scribe were at my direction and personally dictated by me. I have reviewed the chart and agree that the record accurately reflects my personal performance of the history, physical exam, medical decision making, and the department course for this patient. I have also personally directed, reviewed, and agree with the discharge instructions and disposition. (Carter Turk) Disposition/Present on Arrival - Present on Arrival History of DVT/PE: No History of Uncontrolled Diabetes: No Urinary Catheter: No History of Decub. Ulcer: No History Surgical Site Infection Following: None <Idania Vidal - Last Filed: 03/27/17 20:45> - Present on Arrival Any Indicators Present on Arrival: No - Disposition Have Diagnosis and Disposition been Completed?: Yes Disposition Time: 23:00 <Carter Turk - Last Filed: 03/28/17 05:22> - Disposition Diagnosis: Peritonitis, acute generalized Disposition: HOSPITALIZED Patient Problems: Current Active Problems Problem Status Onset Peritonitis, acute generalized Acute Condition: FAIR
[2017-03-27 21:22] LABS: VENOUS BLOOD GAS BASE EXCESS -1.1 mmol/L (0.0-2.0); VENOUS BLOOD GAS PO2 129 mm/Hg (30-55); VENOUS BLOOD PH 7.37 (7.32-7.43)
[2017-03-27 21:31] LABS: ALB/GLOB RATIO 0.8 (1.1-1.8); ALBUMIN 3.6 g/dL (3.0-4.8); ALT/SGPT 133 U/L (7-56); AST/SGOT 157 U/L (17-59); BASO # 0.01 K/mm3 (0.0-2.0); BASO % 0.2 % (0.0-3.0); BLOOD UREA NITROGEN 26 mg/dL (7-21); CALCIUM 9.2 mg/dL (8.4-10.5); EOS # 0.2 (0.0-0.7); EOS % 3.1 % (1.5-5.0); GFR AFRICAN-AMERICAN > 60; GFR NON-AFRICAN AMERICAN > 60; GRAN # 3.47 (1.4-6.5); GRAN % 67.4 % (50.0-68.0); HEMOGLOBIN 11.3 g/dL (14.0-18.0); MAGNESIUM 1.8 mg/dL (1.7-2.2); MEAN CELL VOLUME 98.2 fl (80.0-105.0); MEAN CORPUSCULAR HEMOGLOBIN 34.1 pg (25.0-35.0); MEAN CORPUSCULAR HGB CONC 34.8 g/dl (31.0-37.0); MEAN PLATELET VOLUME 11.5 fl (7.0-11.0); MONO # 0.5 (0.1-0.6); MONO % 10.3 % (1.0-6.0); RBC 3.31 10^6/uL (3.5-6.1); RED CELL DISTRIBUTION WIDTH 16.6 % (11.5-14.5); WHITE BLOOD COUNT 5.2 10^3/ul (4.5-11.0)
[2017-03-27] MEDS ORDERED: Piperacillin/Tazobact 3.375 gm 100 ML IVPB STA (21:33)
[2017-03-27] MEDS ORDERED: metroNIDAZOLE IV 500 mg/100 ml 500 MG/100 ML BAG IVPB STA (21:33)
[2017-03-27 21:42] LABS: PROTHROMBIN TIME 17.4 SECONDS (9.4-12.5)
[2017-03-27 21:43] LABS: INR 1.51 (0.93-1.08); PARTIAL THROMBOPLASTIN TIME 36.9 Seconds (25.1-36.5)
[2017-03-27] MEDS: Lactated Ringer's 1,000 ML IV SCH (22:05)
[2017-03-28] MEDS: Oxycodone/Acetaminophen 5/325 mg Tab PO PRN ×2 (00:10→21:26)
--- NOTE | 2017-03-28 00:52 | CP.PCM.HP ---
<Prince Valencia - Last Filed: 03/28/17 06:44> History of Present Illness - History of Present Illness History of Present Illness: Chief Complaint: Fluid from paracentesis performed at [facility] 03/28/16 has infection HPI:52 year old male presents to ED with complaints of abdominal fullness and infection status post paracentesis which revealed ascitic fluid positive for infection. He has a history Hepatocellular Carcinoma and his last paracentesis was done yesterday at [facility] where 5 L of fluid was drained. Due to finding of infection in ascitic fluid, [facility] told him to come to the nearest ER for treatment. He has been feeling chronically weak and fatigued since his diagnosis of hepatocellular carcinoma 3 years ago. He underwent chemotherapy x 3 since May 2016 but stopped due to induced hepatic encephalopathy. The regimen was then restarted briefly and then discontinued because he developed hypothyroidism. His oncologist is Dr. Kwadwo Vale. He denies any fever, chills, nausea, vomiting, constipation, diarrhea, low back pain, headache, blurry/double vision. PMD: Dr. Cisneros Oncologist: Dr. Vale [phone] Past medical history: Diabetes type II, hepatocellular carcinoma, diagnosed 2 years ago, s/p radiation then Nexavar. Patient experienced hepatic encephalopathy while on Nexavar, medication stopped by oncologist. Was on chemo trial at [facility] however developed hypothyroidism, oncologist stopped medication. Hepatitis C diagnosed in [place], portal vein thrombosis, esophageal varices s/p banding, upper GI beeding and his last episode was on october 10 2014 and he was told never to take any anticoagulants and antiplatelet medications Past surgical history: Ligation of varices, appendectomy, liver biopsies Allergies: ASA Family history: DM in family, denies history of cancers Social history: Denies smoking, drinking, drug use. Born in [place]. Not currently working. Lives with and kids. Formerly worked as a class b truck driver. Present on Admission - Present on Admission Any Indicators Present on Admission: No Review of Systems - Constitutional Constitutional: absent: Chills, Fever, Headache, Night Sweats - EENT Eyes: absent: Blurred Vision, Change in Vision Ears: absent: Dizziness - Cardiovascular Cardiovascular: absent: Chest Pain, Dyspnea, Lightheadedness - Respiratory Respiratory: absent: Cough, Dyspnea, Hemoptysis - Gastrointestinal Gastrointestinal: absent: Diarrhea, Nausea, Vomiting - Genitourinary Genitourinary: absent: Change in Urinary Stream, Difficulty Urinating, Dysuria - Musculoskeletal Musculoskeletal: absent: Arthralgias, Back Pain - Integumentary Integumentary: absent: Rash - Neurological Neurological: absent: Dizziness, Numbness, Loss of Vision - Psychiatric Psychiatric: absent: Anxiety, Behavioral Changes, Confusion - Hematologic/Lymphatic Hematologic: absent: Easy Bleeding, Easy Bruising Past Patient History - Infectious Disease Hx of Infectious Diseases: None - Tetanus Immunizations Tetanus Immunization: Unknown - Past Medical History & Family History Past Medical History?: Yes - Past Social History Smoking Status: Never Smoked - CARDIAC Hx Cardiac Disorders: Yes Hx Hypertension: Yes - PULMONARY Hx Respiratory Disorders: Yes Other/Comment: portal vein thrombosis - NEUROLOGICAL Hx Neurological Disorder: No Hx Alzheimer's Disease: No HX Cerebrovascular Accident: No Hx Dementia: No Hx Dizziness: No Hx Meningitis: No Hx Migraine: No Hx Parkinson's Disease: No Hx Seizures: No Hx Transient Ischemic Attacks (TIA): No - HEENT Hx HEENT Problems: No Hx Blind: No Hx Cataracts: No Hx Deafness: No Hx Difficulty Chewing: No Hx Epistaxis: No Hx Glaucoma: No Hx Macular Degeneration: No - RENAL Hx Chronic Kidney Disease: Yes Hx Kidney Stones: Yes (X2) - ENDOCRINE/METABOLIC Hx Diabetes Mellitus Type 2: Yes - HEMATOLOGICAL/ONCOLOGICAL Hx Blood Disorders: Yes Hx Anemia: Yes (WEEKLY IV INFUSION AT [facility]) Hx Cancer: Yes (LIVER CA -COMPLETED RADIATION) Hx Chemotherapy: Yes Hx Hepatitis C: Yes Other/Comment: portal vein thrombosis - INTEGUMENTARY Hx Dermatological Problems: No Hx Basil Cell: No Hx Eczema: No Hx Melanoma: No Hx Psoriasis: No Hx Squamous Cell: No - MUSCULOSKELETAL/RHEUMATOLOGICAL Hx Falls: No - GASTROINTESTINAL Hx Gastrointestinal Disorders: Yes (UPPER GI BLEED ,CORRHOSIS OF LIVER) Hx Gall Bladder Disease: Yes (GALLSTONES) Hx Gastroesophageal Reflux: Yes Other/Comment: Esophageal varices - PSYCHIATRIC Hx Substance Use: No - SURGICAL HISTORY Other/Comment: Banding due to esophageal varices - ANESTHESIA Hx Anesthesia: Yes Hx Anesthesia Reactions: No Meds Allergies/Adverse Reactions: Allergies Allergy/AdvReac Type Severity Reaction Status Date / Time aspirin Allergy Mild VOMITING Verified 06/01/16 12:55 Physical Exam - Constitutional Appears: Non-toxic, No Acute Distress - Head Exam Head Exam: ATRAUMATIC, NORMAL INSPECTION, NORMOCEPHALIC - Eye Exam Eye Exam: EOMI, Normal appearance Additional comments: negative for scleral icterus - ENT Exam ENT Exam: Mucous Membranes Moist, Normal Exam Additional comments: negative for tongue, gum jaundice - Neck Exam Neck exam: Positive for: Normal Inspection - Respiratory Exam Respiratory Exam: Clear to Auscultation Bilateral, NORMAL BREATHING PATTERN. absent: Rhonchi, Wheezes - Cardiovascular Exam Cardiovascular Exam: REGULAR RHYTHM, +S1, +S2 - GI/Abdominal Exam GI & Abdominal Exam: Diminished Bowel Sounds, Distended, Organomegaly. absent: Firm, Guarding, Rebound, Rigid - Extremities Exam Extremities exam: Positive for: pedal edema (bilateral) - Neurological Exam Neurological exam: Alert, Oriented x3 Additional comments: negative for asterixis - Psychiatric Exam Psychiatric exam: Normal Affect, Normal Mood - Skin Skin Exam: Intact, Normal Color, Warm Additional comments: negative for jaundice Results - Vital Signs Recent Vital Signs: Last Vital Signs Temp 98.3 F 03/27/17 20:13 Pulse 80 03/27/17 23:30 Resp 18 03/27/17 23:30 BP 110/70 03/27/17 23:30 Pulse Ox 98 03/27/17 23:30 - Labs Result Diagrams: 03/27/17 20:35 03/27/17 20:35 Assessment & Plan - Assessment and Plan (Free Text) Assessment: 52 year old male presents to ED with complaints of abdominal fullness and infection status post paracentesis which revealed ascitic fluid positive for infection. Plan: Spontaneous Bacterial Peritonitis -Continue Flagyl and Zosyn -Gastroenterology consulted;recommendations appreciated -Infectious disease consulted;recommendations appreciated -lasix and aldactone started (same dosages as home) -Obtain ascitic fluid results from [facility] Hepatic Encephalopathy -Continue with rifaximin,lactulose -Gastroenterology consulted; recommendations appreciated -Ammonia ordered Diabetes Mellitus Type II -Hoang held -Insulin sliding scale-med -Continue to monitor blood glucose levels Hypothyroidism -Continue synthroid Hepatocellular carcinoma -Hematology/oncology consulted; recommendations appreciated DVT/GI prophylaxis: coumadin/protonix <Meaghan Iqbal - Last Filed: 03/28/17 06:54> Results - Vital Signs Recent Vital Signs: Last Vital Signs Temp 98.3 F 03/27/17 20:13 Pulse 78 03/28/17 01:00 Resp 18 03/28/17 01:00 BP 93/58 L 03/28/17 01:00 Pulse Ox 100 03/28/17 01:00 - Labs Result Diagrams: 03/27/17 20:35 03/27/17 20:35 Attending/Attestation - Attestation I have personally seen and examined this patient.: Yes I have fully participated in the care of the patient.: Yes I have reviewed all pertinent clinical information: Yes Notes (Text): 03/28/17 06:53 Agree with doumentation and plan
[2017-03-28] MEDS: Levothyroxine 150 MCG TAB PO SCH ×2 (06:09→11:07)
[2017-03-28] MEDS: Piperacillin/Tazobact 3.375 gm 100 ML IVPB SCH ×4 (06:09→23:39)
[2017-03-28] MEDS: metroNIDAZOLE IV 500 mg/100 ml 500 MG/100 ML BAG IVPB SCH ×3 (06:10→21:16)
[2017-03-28 08:29] LABS: BASO # 0.03 K/mm3 (0.0-2.0); BASO % 0.7 % (0.0-3.0); EOS # 0.2 (0.0-0.7); EOS % 5.7 % (1.5-5.0); GRAN # 2.4 (1.4-6.5); GRAN % 59.1 % (50.0-68.0); HEMOGLOBIN 10.7 g/dL (14.0-18.0); LYMPH # 0.9 (1.2-3.4); LYMPH % 22.4 % (22.0-35.0); MEAN CELL VOLUME 97.2 fl (80.0-105.0); MEAN CORPUSCULAR HEMOGLOBIN 33.8 pg (25.0-35.0); MEAN CORPUSCULAR HGB CONC 34.7 g/dl (31.0-37.0); MEAN PLATELET VOLUME 10.2 fl (7.0-11.0); MONO # 0.5 (0.1-0.6); MONO % 12.1 % (1.0-6.0); RBC 3.17 10^6/uL (3.5-6.1); RED CELL DISTRIBUTION WIDTH 16.3 % (11.5-14.5); WHITE BLOOD COUNT 4.1 10^3/ul (4.5-11.0)
--- NOTE | 2017-03-28 08:33 | RAD ---
HISTORY: Sepsis Patient COMPARISON: 06/15/2016 FINDINGS: LUNGS: No active pulmonary disease. PLEURA: No significant pleural effusion identified, no pneumothorax apparent. CARDIOVASCULAR: Normal. OSSEOUS STRUCTURES: No significant abnormalities. VISUALIZED UPPER ABDOMEN: Normal. OTHER FINDINGS: None. IMPRESSION: No active disease.
[2017-03-28 08:41] LABS: INR 1.62 (0.93-1.08); PARTIAL THROMBOPLASTIN TIME 34.8 Seconds (25.1-36.5); PROTHROMBIN TIME 18.8 SECONDS (9.4-12.5)
[2017-03-28 08:44] LABS: ALB/GLOB RATIO 0.7 (1.1-1.8); ALBUMIN 3.2 g/dL (3.0-4.8); ALT/SGPT 127 U/L (7-56); AST/SGOT 137 U/L (17-59); BLOOD UREA NITROGEN 25 mg/dL (7-21); CALCIUM 8.8 mg/dL (8.4-10.5); GFR AFRICAN-AMERICAN > 60; GFR NON-AFRICAN AMERICAN 58; MAGNESIUM 1.8 mg/dL (1.7-2.2)
--- NOTE | 2017-03-28 08:45 | CT ---
PROCEDURE: CT Abdomen and Pelvis without intravenous contrast HISTORY: SBP COMPARISON: 12/04/2014 CT abdomen and pelvis TECHNIQUE: Technique. Contrast Dose: Radiation dose: Total exam DLP = mGy-cm. This CT exam was performed using one or more of the following dose reduction techniques: Automated exposure control, adjustment of the mA and/or kV according to patient size, and/or use of iterative reconstruction technique. FINDINGS: LOWER THORAX: Platelike atelectasis at the lung bases. LIVER: Hepatomegaly, overall cirrhotic appearance of the liver. Focal masses are not appreciated on this unenhanced study. Punctate spheres identified within the right hepatic lobe. These may be related to prior chemoembolization. GALLBLADDER AND BILE DUCTS: Cholelithiasis without CT evidence of acute cholecystitis. PANCREAS: Unremarkable. No gross lesion or ductal dilatation. SPLEEN: Massive splenomegaly. Orthogonal measurements on the coronal images 10.1 x 18.3 by 17.3 cm. Dilated venous varicosities noted in the abdomen and left upper quadrant. ADRENALS: Unremarkable. No mass. KIDNEYS AND URETERS: Unremarkable. No hydronephrosis. No solid mass. VASCULATURE: Unremarkable. No aortic aneurysm. BOWEL: Unremarkable. No obstruction. No gross mural thickening. APPENDIX: A normal appendix is not visualized. PERITONEUM: Moderate-large volume abdominal and pelvic ascites identified. Thickening of the mesenteries, studding of mesenteric and noted. The findings either represent omental tumor or the sequela of clinically suspected peritonitis. There is no free air identified on the current study. LYMPH NODES: Unremarkable. No enlarged lymph nodes. BLADDER: Unremarkable. REPRODUCTIVE: Unremarkable. BONES: No acute fracture. OTHER FINDINGS: None. IMPRESSION: Inflammatory/neoplastic changes study the mesenteries/omentum. Findings are consistent with clinically suspected peritonitis. Moderate volume abdominal and pelvic ascites. No free air. Massive hepatomegaly, splenomegaly. Large venous varicosities identified in the upper abdomen and left upper quadrant. The overall size of the liver and spleen remain similar to that seen at .
[2017-03-28 08:48] LABS: VENOUS BLOOD GAS BASE EXCESS 0.1 mmol/L (0.0-2.0); VENOUS BLOOD GAS PO2 163 mm/Hg (30-55); VENOUS BLOOD PH 7.41 (7.32-7.43)
--- NOTE | 2017-03-28 10:07 | CARD ---
APPROVED REPORT EKG Measurement Heart [id number] <Conclusion> Normal sinus rhythm Prolonged QT Abnormal ECG
[2017-03-28] MEDS: Insulin Reg-MEDIUM-Coverage SC SCH ×4 (11:03→21:19)
[2017-03-28] MEDS: Lactated Ringer's 1,000 ML IV SCH (11:10)
--- NOTE | 2017-03-28 22:42 | CON ---
DATE: 03/28/2017 I saw Mr. Chandler this morning. This is a 52-year-old Syrian male with a history of hepatocellular carcinoma, diabetes, portal vein thrombosis, esophageal varices. The patient apparently had treatment attempted at [facility]; however, the treatment was ineffective since had to be stopped. According to the patient and his relatives a paracentesis ([facility]) was done, 5 L of fluids were taken off. The ascites was found to be positive for infection, therefore, SBP. The patient was advised to go to the local emergency room for antibiotic treatment. The patient denied any hematemesis or rectal bleeding. Currently at the bedside, the patient has abdominal fullness as well as some epigastric discomfort. PHYSICAL EXAMINATION: VITAL SIGNS: I reviewed the patient's vital signs. HEENT: Noncontributory. LUNGS: Decreased breath sounds bilaterally at the bases. HEART: Irregular rhythm. ABDOMEN: Distended, tender in the epigastric area. Significant veins noticed in the left anterior part of the lower abdomen subcutaneously. LABORATORY DATA: I reviewed the patient's laboratory data. Review of the abdomen and pelvis CT scan indicates extensive amount of abdominopelvic fluid, thickening of mesenteries. Also to my eye, the mesentery is significant for probable tumor. Evaluation of labs indicate H and H of 10 and 30 with platelet count of 135. AST and ALT ratio 137 and 127 with bilirubin of 3.1. OVERALL ASSESSMENT: This is a 52-year-old Syrian male with a recent diagnosis of spontaneous bacterial peritonitis after paracentesis done at another facility. I discussed this case with Dr. Pierre. The patient will be treated with antibiotics, as well as prophylactically with spironolactone and lactulose. The patient is also given piperacillin and tazobactam by the ER and Dr. Valencia. Due to the extensive nature of findings on the CT scan, we tend to be conservative at this point in time. I have nothing more to offer this patient at the current time point. Trevin Dwyer DO, PhD [facility]
[2017-03-29 04:13] VITALS: RESP 20
[2017-03-29] MEDS: Lactated Ringer's 1,000 ML IV SCH ×2 (04:13→14:13)
[2017-03-29] MEDS: metroNIDAZOLE IV 500 mg/100 ml 500 MG/100 ML BAG IVPB SCH ×2 (05:23→13:52)
[2017-03-29] MEDS: Levothyroxine 150 MCG TAB PO SCH (06:03)
[2017-03-29] MEDS: Piperacillin/Tazobact 3.375 gm 100 ML IVPB SCH ×3 (06:07→17:26)
[2017-03-29 08:21] VITALS: TEMP 98; O2SAT 96
[2017-03-29 08:28] LABS: BASO # 0.02 K/mm3 (0.0-2.0); BASO % 0.4 % (0.0-3.0); EOS # 0.1 (0.0-0.7); EOS % 2.8 % (1.5-5.0); GRAN # 3.27 (1.4-6.5); GRAN % 64.5 % (50.0-68.0); HEMOGLOBIN 10.7 g/dL (14.0-18.0); LYMPH % 20.2 % (22.0-35.0); MEAN CELL VOLUME 98.1 fl (80.0-105.0); MEAN CORPUSCULAR HEMOGLOBIN 33.8 pg (25.0-35.0); MEAN CORPUSCULAR HGB CONC 34.4 g/dl (31.0-37.0); MEAN PLATELET VOLUME 10.3 fl (7.0-11.0); MONO # 0.6 (0.1-0.6); MONO % 12.1 % (1.0-6.0); RBC 3.17 10^6/uL (3.5-6.1); RED CELL DISTRIBUTION WIDTH 16.5 % (11.5-14.5); WHITE BLOOD COUNT 5.1 10^3/ul (4.5-11.0)
[2017-03-29 08:42] LABS: INR 1.7 (0.93-1.08); PROTHROMBIN TIME 19.8 SECONDS (9.4-12.5)
--- NOTE | 2017-03-29 08:51 | CON ---
DATE: 03/28/2017 CHIEF COMPLAINT: Weakness times several days. HISTORY OF PRESENT ILLNESS: This is a 52-year-old male with past medical history significant for stage III liver cancer. The patient was seen in another hospital, had thoracentesis, and he has told had he has peritonitis and to be admitted. The patient also with history of kidney stones, diabetes mellitus, anemia, history of hepatitis C, and portal vein thrombosis. The patient has low-grade fevers and chills. No chest pain. Has mild abdominal pain. No headaches or blurred vision. PAST MEDICAL HISTORY: Significant for diabetes mellitus, hypertension, hepatitis C, liver cancer, and kidney stones. PAST SURGICAL HISTORY: Significant for appendectomy. The patient also has a port in the right chest wall. ALLERGIES: THE PATIENT IS ALLERGIC TO ASPIRIN. MEDICATIONS AT HOME: Include the patient to be on levothyroxine, oxycodone, and Lasix. PHYSICAL EXAMINATION: GENERAL: The patient is in bed, appearing much much older than his stated age of 52. VITAL SIGNS: Temperature of 98, blood pressure of 93/50, heart rate of 78, and respiratory rate of 18. HEENT: Unremarkable. NECK: Supple. LUNGS: Have decreased breath sounds. HEART: Normal S1 and S2. ABDOMEN: Soft and nontender. LABORATORY DATA: Reveals a white count of 5.2, hemoglobin of 11, and platelets of 177. Coagulation is noted. Blood gases are noted. Chemistries reveals a BUN of 25 and creatinine of 1.7. LFTs are elevated. The patient had a CAT scan of the abdomen and pelvis, which reveals a massive hepatomegaly, splenomegaly, large identified in the upper abdomen and lower abdomen, inflammatory neoplastic changes in the consistent with suspected peritonitis. Dr. Iqbal's history and physical examination is noted. The patient has a chest x-ray, which is reported no active pulmonary disease. ASSESSMENT AND PLAN: This is a 52-year-old male with history of hepatitis C, diabetes, kidney stones, liver cancer, anemia, and portal vein thrombosis, admitted now with spontaneous bacterial peritonitis. The patient had workup at another hospital admitted for admission and was told that he has infection in his peritoneal fluid and we will treat the patient with Zosyn 3.375 g IV q.8 hours and pending workup and medical records from previous hospital should be obtained. Overall prognosis is quite poor for this patient. We will follow with you. Wilian White MD
[2017-03-29 09:22] LABS: ALB/GLOB RATIO 0.7 (1.1-1.8); ALBUMIN 3.2 g/dL (3.0-4.8); ALT/SGPT 141 U/L (7-56); AST/SGOT 141 U/L (17-59); BLOOD UREA NITROGEN 25 mg/dL (7-21); CALCIUM 8.9 mg/dL (8.4-10.5); GFR AFRICAN-AMERICAN > 60; GFR NON-AFRICAN AMERICAN 58
[2017-03-29] MEDS: Insulin Reg-MEDIUM-Coverage SC SCH ×3 (11:51→16:43)
[2017-03-29 17:32] VITALS: BP 92/66; PULSE 81
--- NOTE | 2017-03-29 17:43 | CP.PCM.DIS ---
Provider - Provider Date of Admission: 03/27/17 22:46 Attending physician: Mario Urias MD Primary care physician: Alexa Andrade MD Time Spent in preparation of Discharge (in minutes): 40 Diagnosis - Discharge Diagnosis (1) Spontaneous bacterial peritonitis Status: Acute (2) Hepatocellular carcinoma Status: Chronic (3) Hepatitis C Status: Chronic (4) Esophageal varices Status: Chronic (5) Hypothyroid Status: Chronic Hospital Course - Lab Results Lab Results: Most Recent Lab Values WBC 5.1 10^3/ul (4.5-11.0) D 03/29/17 08:15 RBC 3.17 10^6/uL (3.5-6.1) L 03/29/17 08:15 Hgb 10.7 g/dL (14.0-18.0) L 03/29/17 08:15 Hct 31.1 % (42.0-52.0) L 03/29/17 08:15 MCV 98.1 fl (80.0-105.0) 03/29/17 08:15 MCH 33.8 pg (25.0-35.0) 03/29/17 08:15 MCHC 34.4 g/dl (31.0-37.0) 03/29/17 08:15 RDW 16.5 % (11.5-14.5) H 03/29/17 08:15 Plt Count 153 10^3/uL (120.0-450.0) 03/29/17 08:15 MPV 10.3 fl (7.0-11.0) 03/29/17 08:15 Gran % 64.5 % (50.0-68.0) 03/29/17 08:15 Lymph % (Auto) 20.2 % (22.0-35.0) L 03/29/17 08:15 [place] % (Auto) 12.1 % (1.0-6.0) H 03/29/17 08:15 Eos % (Auto) 2.8 % (1.5-5.0) 03/29/17 08:15 Baso % (Auto) 0.4 % (0.0-3.0) 03/29/17 08:15 Gran # 3.27 (1.4-6.5) 03/29/17 08:15 Lymph # 1.0 (1.2-3.4) L 03/29/17 08:15 [place] # 0.6 (0.1-0.6) 03/29/17 08:15 Eos # 0.1 (0.0-0.7) 03/29/17 08:15 Baso # 0.02 K/mm3 (0.0-2.0) 03/29/17 08:15 PT 19.8 SECONDS (9.4-12.5) H 03/29/17 08:15 INR 1.70 (0.93-1.08) H 03/29/17 08:15 APTT 34.8 Seconds (25.1-36.5) 03/28/17 08:00 pO2 163 mm/Hg (30-55) H 03/28/17 08:15 VBG pH 7.41 (7.32-7.43) 03/28/17 08:15 VBG pCO2 39.0 (40-60) L 03/28/17 08:15 VBG HCO3 24.7 mmol/l (21-28) 03/28/17 08:15 VBG Total CO2 25.9 mmol.L (22-28) 03/28/17 08:15 VBG O2 Sat (Calc) 99.5 % (40-65) H 03/28/17 08:15 VBG Base Excess 0.1 mmol/L (0.0-2.0) 03/28/17 08:15 VBG Potassium 4.2 mmol/L (3.6-5.2) 03/28/17 08:15 Sodium 132.0 mmol/L (132-148) 03/28/17 08:15 Chloride 102.0 mmol/L (98-107) 03/28/17 08:15 Glucose 94 mg/dl (75-110) 03/28/17 08:15 Lactate 1.6 mmol/L (0.7-2.1) 03/28/17 08:15 FiO2 21.0 % 03/28/17 08:15 Sodium 131 mmol/L (132-148) L 03/29/17 08:15 Potassium 4.4 mmol/L (3.6-5.0) 03/29/17 08:15 Chloride 98 mmol/L (98-107) 03/29/17 08:15 Carbon Dioxide 22 mmol/L (21-33) 03/29/17 08:15 Anion Gap 15 (10-20) 03/29/17 08:15 BUN 25 mg/dL (7-21) H 03/29/17 08:15 Creatinine 1.3 mg/dl (0.8-1.5) 03/29/17 08:15 Est GFR ( Amer) > 60 03/29/17 08:15 Est GFR (Non-Af Amer) 58 03/29/17 08:15 POC Glucose (mg/dL) 147 mg/dL (65-110) H 03/29/17 16:11 Random Glucose 118 mg/dL (70-110) H 03/29/17 08:15 Calcium 8.9 mg/dL (8.4-10.5) 03/29/17 08:15 Phosphorus 3.3 mg/dL (2.5-4.5) 03/28/17 08:00 Magnesium 1.8 mg/dL (1.7-2.2) 03/28/17 08:00 Total Bilirubin 3.0 mg/dL (0.2-1.3) H 03/29/17 08:15 AST 141 U/L (17-59) H 03/29/17 08:15 ALT 141 U/L (7-56) H 03/29/17 08:15 Alkaline Phosphatase 272 U/L (38-126) H 03/29/17 08:15 Ammonia 27 umol/L (9-33) 03/28/17 08:00 Total Protein 7.7 g/dL (5.8-8.3) 03/29/17 08:15 Albumin 3.2 g/dL (3.0-4.8) 03/29/17 08:15 Globulin 4.5 gm/dL 03/29/17 08:15 Albumin/Globulin Ratio 0.7 (1.1-1.8) L 03/29/17 08:15 Venous Blood Potassium 4.2 mmol/L (3.6-5.2) 03/28/17 08:15 - Hospital Course Hospital Course: Mr. Chandler is a 52 year old male with a [facility] Diabetes type II, hepatocellular carcinoma, Hepatitis C, portal vein thrombosis, esophageal varices s/p banding, upper GI beeding who presented to ED with complaints of abdominal fullness and after he was told to go to ER by staff at [facility] medical team who performed paracentesis on him 3 days earlier and removed 5L and now told him that he had an "infection." Patient denied fevers/chills, abdominal tenderness, and had no changed in mental status throughout stay. His oncologist is Dr. Kwadwo Vale. His PMD is Dr. Lupe Liu. The grated cheese maker that he's been following is Dr. Kady Brown @ [facility]. Patient was prophylactically started on Flagyl and Zosyn, and continued on Lasix, Aldactone, Lactulose and Rifaximin; Lasix, aldactone and lactulose were held initially for hypotension. GI, Onc and ID were consulted. Consent was obtained to get reports from [facility] which were positive for SBP, however, no cultures were provided. Dr. Clifton Mays (hepatology) and Olga Lidia (credit front office developer) @ [facility] ([phone]) were contacted and offered no further recommendations for patient. Patient was deemed medically stable for discharge. Patient is prescribed cipro 500 bid x5 days. Patient will follow with PMD Dr. Liu within 1 week. Patient instructed to report to PMD/grated cheese maker/oncologist or ED if any signs of fevers/chills, n/v/d, increased abdominal fullness or tenderness occurs. Patient's family bedside and also educated about condition. Discharge Exam - Head Exam Head Exam: ATRAUMATIC, NORMAL INSPECTION, NORMOCEPHALIC - Eye Exam Eye Exam: EOMI, PERRL, Scleral icterus - ENT Exam ENT Exam: Mucous Membranes Moist - Neck Exam Neck exam: Normal Inspection - Respiratory Exam Respiratory Exam: Clear to PA & Lateral, NORMAL BREATHING PATTERN. absent: Rales, Rhonchi, Wheezes - Cardiovascular Exam Cardiovascular Exam: RRR, +S1, +S2 - GI/Abdominal Exam GI & Abdominal Exam: Distended, Normal Bowel Sounds, Organomegaly, Soft. absent : Guarding, Tenderness - Extremities Exam Extremities exam: full ROM - Back Exam Back exam: NORMAL INSPECTION - Neurological Exam Neurological exam: Alert, CN II-XII Intact, Oriented x3 - Psychiatric Exam Psychiatric exam: Normal Affect, Normal Mood - Skin Skin Exam: Warm Additional comments: jaundice Discharge Plan - Discharge Medications Prescriptions: Ciprofloxacin [Cipro] 500 mg PO Q12 #10 tab - Follow Up Plan Condition: FAIR Disposition: HOME/ ROUTINE Instructions: Liver Cancer (DC), Hepatic Encephalopathy (DC), Abdominal Paracentesis (DC), Ascites (DC) Additional Instructions: - please take ciprofloxacin every 12 hours for 5 days - continue your regular home medications - please follow up with your primary doctor Dr. Andrade within 1 week - if you experience any change in mental status, abdominal distention or worsening pain, please return to your GI doctor who is managing your condition or the nearest ER Referrals: Alexa Andrade MD [Primary Care Provider] -
--- NOTE | 2017-03-30 00:48 | PN ---
DATE: 03/29/2017 SUBJECTIVE: The patient is seen early this morning, doing well. No nausea. No vomiting. PHYSICAL EXAMINATION: VITAL SIGNS: Temperature is 98, blood pressure is 120/70, respiratory rate of 16. HEENT: Unremarkable. NECK: Supple. LUNGS: Have decreased breath sounds. HEART: Normal S1, S2. ABDOMEN: Soft. No rebound or guarding. LABORATORY EXAMINATION: Reveals a white count of 5.1, hemoglobin of 10, platelets of 153. Coagulation is noted. Chemistries reveal a BUN of 25, creatinine of 1.3. LFTs are noted. Microbiology reveals the blood cultures are negative. ASSESSMENT AND PLAN: This is a 52-year-old male with hepatitis C, diabetes, kidney stones, liver cancer, anemia, portal vein thrombosis, admitted with spontaneous bacterial peritonitis. It is unable to get the culture results. If the cultures are negative, I encourage to complete the therapy with p.o. Augmentin. The patient should be on p.o. Cipro 750 once weekly for prophylaxis of spontaneous bacterial peritonitis once the acute treatment with the Augmentin of 875 mg p.o. b.i.d. x7 days is completed. Wilian White MD
== END 2017-03-29 19:49 | disposition home or self-care (01) | DRG 552 ==
LOC: ED 19:00 → ERH 22:46 → 5RNO 03-28 02:43 → 5RSO 03-28 11:01
PROVIDERS: ADMIT Internal Medicine; ATTEND Internal Medicine
DX: K65.2 Spontaneous bacterial peritonitis (principal); I81 Portal vein thrombosis; C22.0 Liver cell carcinoma; I85.00 Esophageal varices without bleeding; B19.20 Unspecified viral hepatitis C without hepatic coma; I10 Essential (primary) hypertension; E11.9 Type 2 diabetes mellitus without complications; D64.9 Anemia, unspecified; E03.9 Hypothyroidism, unspecified; Z87.442 Personal history of urinary calculi; Z88.6 Allergy status to analgesic agent; Z79.84 Long term (current) use of oral hypoglycemic drugs